=== PATIENT | male | born 1970 | race Caucasian/White ===

== ENCOUNTER 2017-05-31 12:28 | Emergency (ER) | payer OTHER ==
[~2017-05-31] VITALS: Ht 175.3 cm; Wt 100.0 kg
[2017-05-31] MEDS ORDERED: MULT1CHW39 PO (12:48)
[2017-05-31] MEDS ORDERED: OMEP40CA2 PO (12:48)
[2017-05-31] MEDS ORDERED: BUPR1TAB53 PO (12:48)
--- NOTE | 2017-05-31 14:50 | REP ---
LUMBOSACRAL SPINE SERIES: Five view of the lumbosacral spine are performed. There is no compression fracture or malalignment with normal lumbar lordosis. There is mild diffuse spurring. Slight disc space narrowing is seen at virtually all levels with sclerosis at the posterior facet joints. THE posterior elements are intact. IMPRESSION: Mild diffuse degenerative changes without fracture or dislocation. Signed by Kishan Monreal MD 05/31/2017 07:54 P
[2017-05-31 14:52] VITALS: BP 134/68
[2017-05-31] MEDS ORDERED: ROBA500T PO (14:54)
[2017-05-31] MEDS ORDERED: IBUP80TA PO (14:54)
== END 2017-05-31 15:05 | disposition home or self-care (01) ==
LOC: M ED 12:28
DX: S39.012A Strain of muscle, fascia and tendon of lower back, initial encounter (principal); M51.37 Other intervertebral disc degeneration, lumbosacral region; M54.31 Sciatica, right side; X50.9XXA Other and unspecified overexertion or strenuous movements or postures, initial encounter; Y92.9 Unspecified place or not applicable; Y93.89 Activity, other specified; Y99.0 Civilian activity done for income or pay; Z79.899 Other long term (current) drug therapy

== ENCOUNTER → 2017-11-06 | Outpatient (CLI) | payer OTHER ==
[2017-11-06 12:12] LABS: BASO % 0.4 % (0.0-1.0); EOS # 0.5 10^3/uL (0.0-0.50); EOS % 6.1 % (0.0-3.0); HEMATOCRIT 36.3 % (42.0-52.0); HEMOGLOBIN 10.7 g/dl (14.0-18.0); IMMATURE GRANULOCYTE % 0.3 % (0-3.0); LYMPH # 1.4 10^3/uL (1.5-4.5); LYMPH % 18.2 % (24.0-44.0); MEAN CORPUSCULAR HEMOGLOBIN 21.4 pg (27.0-33.0); MEAN CORPUSCULAR HGB CONC 29.5 g/dl (32.0-36.5); MEAN CORPUSCULAR VOLUME 72.7 fl (80.0-96.0); MONO # 0.7 10^3/uL (0.0-0.8); NEUTROPHILS # 5.1 10^3/uL (1.8-7.7); PLATELET COUNT, AUTOMATED 382 10^3/uL (150-450); RED BLOOD COUNT 4.99 10^6/uL (4.30-6.10); RED CELL DISTRIBUTION WIDTH 16.8 % (11.5-14.5); WHITE BLOOD COUNT 7.7 10^3/uL (4.0-10.0)
[2017-11-06 12:28] LABS: ALBUMIN 3.8 GM/DL (3.2-5.2); ALBUMIN/GLOBULIN RATIO 1.31 (1.00-1.93); ALKALINE PHOSPHATASE 59 U/L (45-117); ALT/SGPT 21 U/L (12-78); ANION GAP 8 MEQ/L (8-16); AST/SGOT 18 U/L (7-37); BILIRUBIN,TOTAL 0.5 MG/DL (0.2-1.0); BLOOD UREA NITROGEN 17 MG/DL (7-18); CALCIUM LEVEL 8.3 MG/DL (8.5-10.1); CARBON DIOXIDE LEVEL 27 MEQ/L (21-32); CHLORIDE LEVEL 106 MEQ/L (98-107); CHOLESTEROL LEVEL 190 MG/DL (<200); CHOLESTEROL RISK RATIO 3.275 (<5); CREATININE FOR GFR 1.03 MG/DL (0.70-1.30); GLOMERULAR FILTRATION RATE > 60.0 (>60); GLUCOSE, FASTING 94 MG/DL (70-100); HDL CHOLESTEROL 58 MG/DL (>40); LDL CHOLESTEROL 112.6 MG/DL (<100); NON-HDL-C 132 MG/DL; POTASSIUM SERUM 4.2 MEQ/L (3.5-5.1); SODIUM LEVEL 141 MEQ/L (136-145); TOTAL PROTEIN 6.7 GM/DL (6.4-8.2); TRIGLYCERIDES LEVEL 97 MG/DL (<150)
== END ==
LOC: M WUC 09:22
DX: Z79.899 Other long term (current) drug therapy (principal)
CPT/HCPCS: 84443

== ENCOUNTER 2017-12-20 08:48 | Day surgery (SDC) | payer OTHER ==
[2017-12-20] MEDS ORDERED: PROPOFOL 200 MG/20 ML VIAL As Ordered ×3 (10:47)
[2017-12-20] MEDS ORDERED: LIDOCAINE 2% INJ 100 MG/5 ML SYRINGE As Ordered (10:48)
== END 2017-12-20 11:31 | disposition home or self-care (01) ==
LOC: M OPP 08:48
DX: K64.2 Third degree hemorrhoids (principal); K62.1 Rectal polyp; K62.5 Hemorrhage of anus and rectum; K57.30 Diverticulosis of large intestine without perforation or abscess without bleeding; G43.909 Migraine, unspecified, not intractable, without status migrainosus; F41.9 Anxiety disorder, unspecified; F32.9 Major depressive disorder, single episode, unspecified; K21.9 Gastro-esophageal reflux disease without esophagitis; Z79.899 Other long term (current) drug therapy; Z87.891 Personal history of nicotine dependence
CPT/HCPCS: 45385

== ENCOUNTER 2018-12-16 00:02 | Inpatient (IN) | payer OTHER ==
[~2018-12-16] VITALS: Ht 175.3 cm; Wt 90.4 kg
[~2018-12-16 00:02] MED LIST: BUPR10TASR PO; BUPR1TAB53 PO; IBUP80TA PO; MULT200T7 PO; OMEP40CA2 PO; ROBA500T PO
[2018-12-16] MEDS ORDERED: AMBI10TA PO (00:06)
[2018-12-16] MEDS ORDERED: CHARCOAL ACTIVATED LIQUID 25 GM/120 ML BTL As Ordered ONE (00:33)
[2018-12-16 00:37] LABS: BASO % 0.4 % (0.0-1.0); EOS # 0.5 10^3/uL (0.0-0.50); EOS % 4.9 % (0.0-3.0); HEMATOCRIT 42.5 % (42.0-52.0); LYMPH % 10.8 % (24.0-44.0); MEAN CORPUSCULAR HEMOGLOBIN 23.5 pg (27.0-33.0); MEAN CORPUSCULAR HGB CONC 30.6 g/dl (32.0-36.5); MEAN CORPUSCULAR VOLUME 76.7 fl (80.0-96.0); MONO # 0.7 10^3/uL (0.0-0.8); MONO % 7.5 % (0.0-5.0); NEUTROPHILS # 7.2 10^3/uL (1.8-7.7); PLATELET COUNT, AUTOMATED 335 10^3/uL (150-450); RED BLOOD COUNT 5.54 10^6/uL (4.30-6.10); WHITE BLOOD COUNT 9.5 10^3/uL (4.0-10.0)
[2018-12-16] MEDS ORDERED: CHARCOAL ACTIVATED LIQUID 25 GM/120 ML BTL PO ONE (00:45)
[2018-12-16] MEDS ORDERED: NS 1,000 ML IV ONE (00:45)
[2018-12-16] MEDS ORDERED: BUPR1TAB56 PO (00:56)
[2018-12-16 01:04] LABS: ACETAMINOPHEN LEVEL < 2.0 UG/ML (10.0-30.0); ALT/SGPT 23 U/L (12-78); BILIRUBIN,DIRECT 0.1 MG/DL (0.0-0.2); BILIRUBIN,TOTAL 0.8 MG/DL (0.2-1.0); BLOOD UREA NITROGEN 14 MG/DL (7-18); CALCIUM LEVEL 8.6 MG/DL (8.5-10.1); CARBON DIOXIDE LEVEL 26 MEQ/L (21-32); CHLORIDE LEVEL 107 MEQ/L (98-107); CPK CREATINE PHOSPHOKINASE 203 U/L (39-308); CREATININE FOR GFR 1.08 MG/DL (0.70-1.30); ETHYL ALCOHOL (ETHANOL) < 0.003 % (0.000-0.010); GLOMERULAR FILTRATION RATE > 60.0 (>60); GLUCOSE, FASTING 97 MG/DL (70-100); POTASSIUM SERUM 4.7 MEQ/L (3.5-5.1); SALICYLATE LEVEL < 1.7 MG/DL (5.0-30.0); SODIUM LEVEL 141 MEQ/L (136-145); TOTAL PROTEIN 7.3 GM/DL (6.4-8.2)
[2018-12-16] MEDS ORDERED: ONDANSETRON 4MG/2ML VIAL (J2405) IV ONE (02:00)
[2018-12-16] MEDS ORDERED: GOLYTELY SOLN 4000 ML BTL NG ONE (02:00)
[2018-12-16 02:47] LABS: AMPHETAMINES LEVEL URINE NEGATIVE (NEGATIVE); BARBITURATES URINE NEGATIVE (NEGATIVE); BENZODIAZEPINES URINE NEGATIVE (NEGATIVE); CANNABINOIDS URINE NEGATIVE (NEGATIVE); COCAINE METABOLITE URINE NEGATIVE (NEGATIVE); METHADONE URINE NEGATIVE (NEGATIVE); OPIATES URINE NEGATIVE (NEGATIVE); PHENCYCLIDINE URINE NEGATIVE (NEGATIVE)
--- NOTE | 2018-12-16 03:18 | HPEPDOC ---
General Date of Admission 12/16/18 Attending Physician: DEANN GRIMES MD Chief Complaint The patient is a 48-year-old male admitted with a reason for visit of Overdose. Source: Patient, Family, RN/MD Exam Limitations: Other (confusion due to drug overdose) History of Present Illness 48 year old male with PMH of depression and insomnia was brought into the ED for confusion after presumed intake of 7 Ambiens and 24 wellbutrin tablets. He denied having trying to kill himself or having any suicidal thoughts. As per his partner he was fine at around 9 pm. She fell asleep then . She was woken up by the patient at around 11 pm when he was talking nonsense and was talking about irrelevant things not making any sense acting weirdly. The patient says he rem embers taking his wellbutrin then he cannot remember anything . His family believes that he may have taken his ambien after or before that at that may have made him confused as this is a relatively new medication ( 2 months) for him and he does not take it every day. Poison control was contacted from ED and recommended total bowel irrigation and observation for 24 hours. Patient is admitted for Toxic metabolic Encephalopathy from accidental drug overdose Home Medications Scheduled Bupropion HCl (Bupropion HCl Sr) 200 Mg Tab.sr.12h, 200 MG PO BID, (Reported) Scheduled PRN Zolpidem Tartrate (Ambien) 10 Mg Tablet, 10 MG PO QHS PRN for sleep, (Reported) Allergies Coded Allergies: No Known Allergies (Unverified , 05/31/17) Past Medical History Medical History Depression, insomnia, internal hemorrhoids, diverticulosis of sigmoid colon Social History * Smoker: Denies Alcohol: other (used to be a heavy drinker quit 3 years ago) Drugs: denies Review of Systems Constitutional: Denies: Chills, Fever, Night Sweats Eyes: Denies: Pain, Vision change ENT: Denies: Head Aches, Ear Pain, Dysphagia Skin: Denies: Rash, Lesions, Breakdown Pulmonary: Denies: Dyspnea, Cough Cardiovascular: Denies: Chest Pain, Palpitations, Orthopnea, Paroxysmal Noc. Dyspnea, Lt Headedness Gastrointestinal: Denies: Nausea, Vomiting, Abdominal Pain, Diarrhea Genitourinary: Denies: Dysuria, Frequency, Incontinence, Retention Neurological: Reports: Change in speech, Confusion Psych: Reports: Depression Physical Examination General Exam: Positive: Alert, Cooperative, No Acute Distress Eye Exam: Positive: PERRLA, Conjunctiva & lids normal, EOMI; Negative: Sclera icteric ENT Exam: Positive: Atraumatic, Mucous membr. moist/pink, Pharynx Normal Neck Exam: Positive: Supple; Negative: JVD, thyromegaly Chest Exam: Positive: Clear to auscultation, Normal air movement Heart Exam: Positive: Rate Normal, Regular Rhythm, Normal S1, Normal S2; Negative: Murmurs, Rubs Telemetry: Positive: No significant arrhythmia Abdomen Exam: Positive: Normal bowel sounds, Soft; Negative: Tenderness, Hepatospenomegaly Extremity Exam: Positive: Normal pulses; Negative: Clubbing, Cyanosis, Edema Skin Exam: Positive: Nl turgor and temperature; Negative: Breakdown, Lesion Neuro Exam: Positive: Normal Speech, Strength at 5/5 X4 ext, Normal Tone Psych Exam: Positive: Mood NL, Memory Intact, Oriented x 3 Vital Signs Vital Signs Date Time Temp Pulse Resp B/P (MAP) Pulse Ox O2 Delivery O2 Flow Rate FiO2 12/16/18 01:46 100 20 112/71 (85) 99 Room Air 12/16/18 00:02 96.7 Laboratory Data Labs 24H Laboratory Tests 2 12/16/18 00:24: Immature Granulocyte % (Auto) 0.4, White Blood Count 9.5, Red Blood Count 5.54, Hemoglobin 13.0L, Hematocrit 42.5, Mean Corpuscular Volume 76.7L, Mean Corpuscular Hemoglobin 23.5L, Mean Corpuscular Hemoglobin Concent 30.6L, Red Cell Distribution Width 18.0H, Platelet Count 335, Neutrophils (%) (Auto) 76.0H, Lymphocytes (%) (Auto) 10.8L, Monocytes (%) (Auto) 7.5H, Eosinophils (%) (Auto) 4.9H, Basophils (%) (Auto) 0.4, Neutrophils # (Auto) 7.2, Lymphocytes # (Auto) 1.0L, Monocytes # (Auto) 0.7, Eosinophils # (Auto) 0.5, Basophils # (Auto) 0.0, Nucleated Red Blood Cells % (auto) 0.0, Anion Gap 8, Glomerular Filtration Rate > 60.0, Calcium Level 8.6, Aspartate Amino Transf (AST/SGOT) 34, Alanine Aminotransferase (ALT/SGPT) 23, Alkaline Phosphatase 51, Total Bilirubin 0.8, Direct Bilirubin 0.1, Total Creatine Kinase 203, Total Protein 7.3, Albumin 4.0, Albumin/Globulin Ratio 1.21, Thyroid Stimulating Hormone (TSH) 1.580, Salicylates Level < 1.7L, Acetaminophen Level < 2.0L, Ethyl Alcohol Level < 0.003 CBC/BMP Laboratory Tests 12/16/18 00:24 Red Blood Count 5.54, Mean Corpuscular Volume 76.7 L, Mean Corpuscular Hemoglobin 23.5 L, Mean Corpuscular Hemoglobin Concent 30.6 L, Red Cell Distribution Width 18.0 H, Neutrophils (%) (Auto) 76.0 H, Lymphocytes (%) (Auto) 10.8 L, Monocytes (%) (Auto) 7.5 H, Eosinophils (%) (Auto) 4.9 H, Basophils (%) (Auto) 0.4, Neutrophils # (Auto) 7.2, Lymphocytes # (Auto) 1.0 L, Monocytes # (Auto) 0.7, Eosinophils # (Auto) 0.5, Basophils # (Auto) 0.0 Assessment/Plan 48 year old male with PMH of depression and insomnia was brought into the ED for confusion after presumed intake of 7 Ambiens and 24 wellbutrin tablets. He den ied having trying to kill himself or having any suicidal thoughts. As per his partner he was fine at around 9 pm. She fell asleep then . She was woken up by the patient at around 11 pm when he was talking nonsense and was talking about irrelevant things not making any sense acting weirdly. Family members then checked his medication bottles which were refilled yesterday and had several missing The patient says he remembers taking his wellbutrin then he cannot remember anything . His family believes that he may have taken his ambien after or before that at that may have made him confused as this is a relatively new medication ( 2 months) for him and he does not take it every day. Poison contr ol was contacted from ED and recommended total bowel irrigation and observation for 24 hours. Patient is admitted for Toxic metabolic Encephalopathy from accidental drug overdose Toxic metabolic encephalopathy from medication overdose. Patient seems candace be improving he is alert and oriented x 3 will continue to monitor Drug overdose patient denied any suicidal thoughts. Family denied his having any intentional drug overdose history or any psychiatric history. this was probably accidental overdose. Patient may have taken his prescribed medication of ambien and Wellbutrin got confused and continued to take them Will follow Poison control's recommendation of total bowel irrigation with 4 l iter of golyte monitor for qtc prolongation and widening of qrs complex. DVT prophylaxis ordered. Plan / VTE VTE Prophylaxis Ordered?: Yes DEANN GRIMES MD Dec 16, 2018 02:05
[2018-12-16 04:15] VITALS: BP 144/100
[2018-12-16] MEDS: D5W/0.9% SODIUM CHLORIDE 1,000 ML IV SCH ×2 (04:34→15:45)
--- NOTE | 2018-12-16 05:39 | ECGEPIP ---
Stationary ECG Study [facility] - ED Test Date: 2018-12-16 Pat Name: PATRICIO TIRADO Department: Room: - Gender: M Emission Specialist: [facility] : 1970 Requested By: YUDELKA Rao Order Number: [id number] Reading MD: Kenneth Rankin Measurements Intervals [place] Rate: 80 P: 46 FL: 166 QRS: 31 QRSD: 96 T: 24 QT: 349 QTc: 404 Interpretive Statements SINUS RHYTHM NSTTW ABNORMALITIES NO PRIORS FOR COMPARISON Electronically Signed On 12-16-2018 5:38:48 EDT by Kenneth Rankin
[2018-12-16 08:00] VITALS: BP 112/64
[2018-12-16] MEDS ORDERED: ENOXAPARIN 40 MG/0.4 ML SYRINGE (J1650) SC SCH (09:00)
[2018-12-16 12:00] VITALS: BP 129/67
[2018-12-16 16:00] VITALS: BP 145/68
[2018-12-16] MEDS ORDERED: ACETAMINOPHEN TAB 650MG DOSE (2X325MG) PO PRN (17:30)
--- NOTE | 2018-12-16 18:07 | IPN ---
DATE: 12/16/2018 SUBJECTIVE: The patient is seen and examined in the room with his girlfriend. During the encounter, the patient is oriented times three. The patient could not recall the events completely. The patient can not recall how many pills he overdosed. I have talked to the patient's girlfriend who lives with the patient and she could not find any additional pills on the floor. She did the pill count and approximately seven more Ambien and 24 more Wellbutrin were missing from the bottle. The patient stated he is not sure whether his anxiety and depression are under control. The patient had a prescription for Ambien since two months ago. The patient only uses it intermittently. He has used it less than five times. He states he always has some adverse effect from the Ambien such as the worsening of the migraine headache. The patient stated he does not want to take the Wellbutrin or Ambien anymore but he is not sure what he will take or what he will do to control his anxiety and depression more. Poison control is contacted and recommended monitoring the patient on telemetry for at least 24 hours. OBJECTIVE: VITAL SIGNS: Temperature is 98.4, pulse is 84, respiratory rate 18, blood pressure 112/64, pulse oximetry is 98% in room air. GENERAL: The patient is alert and awake, comfortable. HEENT: Normocephalic, atraumatic. Extraocular motor grossly intact. CARDIOVASCULAR: Positive S1, S2, regular rate. LUNGS: Clear to auscultation bilaterally. ABDOMEN: Soft, nontender. Bowel sounds present. EXTREMITIES: No edema. LABORATORY DATA: WBC 9.5, hemoglobin 13, hematocrit 42.5, platelet count is 335. Sodium is 141, potassium is 4.7, chloride is 107, carbon dioxide 26, BUN 14, creatinine 1.08, GFR greater than 60, fasting glucose 97, calcium 8.6, total bilirubin 0.8, direct bilirubin 0.1, AST 34, ALT is 23, alkaline phosphatase is 51, total CK 203, total protein 10.3, albumin 4, TSH 1.58. ASSESSMENT AND PLAN: 1. Medication overdose. The patient is monitored in the intensive care unit (ICU) with cardiac telemetry. Poison control has been following with the case and recommended at least 24-hour cardiac monitoring since the medication overdose. The patient took additional medication around midnight yesterday. The patient had a bowel irrigation with Golytely. Continue with repeat EKG to monitor any potential QTc prolongations. The patient is on seizure precautions. We will continue to follow with poison control. Once the patient is medically stable and cleared by poison control, we will consider consulting psychiatrist. 2. Anxiety/depression. At the baseline, the patient is taking Wellbutrin. However, the patient is not sure whether he has flare of the anxiety or depression and the patient does not want to take the Wellbutrin anymore. We will consult psychiatry when the patient is medically stable. 3. Insomnia. The patient had a prescription of Ambien since two months ago and the patient has not used Ambien routinely. According to the patient, he has used it less than five times in the past two months. However, he feels that he always had adverse effects from the Ambien. 4. Internal hemorrhoids and diverticulosis of the sigmoid colon. The patient had a bowel movement today. There was a trickle of blood noted on the toilet paper. The patient states that is normal from his internal hemorrhoids and diverticulosis. No significant bleeding noted. We will continue to monitor the patient's hemoglobin and hematocrit. 5. Deep vein thrombosis (DVT) prophylaxis. The patient will be on thromboembolic-deterrent stockings (TEDS).
[2018-12-16 20:00] VITALS: BP 119/73
--- NOTE | 2018-12-16 22:36 | ECGEPIP ---
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 No significant change compared with 12/16/2018 at 00:29 hours. Electronically Signed On 12-16-2018 22:35:38 EDT by Vinicius Tierney
--- NOTE | 2018-12-16 22:39 | ECGEPIP ---
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 No significant change compared with 12/16/2018 at 7:57 AM. Electronically Signed On 12-16-2018 22:38:58 EDT by Vinicius Tierney
[2018-12-16 23:59] VITALS: BP 119/60
[2018-12-17 04:00] VITALS: BP 127/67
[2018-12-17] MEDS: D5W/0.9% SODIUM CHLORIDE 1,000 ML IV SCH ×2 (04:31→17:46)
[2018-12-17 05:39] LABS: BASO % 0.4 % (0.0-1.0); EOS # 0.4 10^3/uL (0.0-0.50); EOS % 5.7 % (0.0-3.0); HEMATOCRIT 37.6 % (42.0-52.0); HEMOGLOBIN 11.2 g/dl (13.5-17.5); LYMPH # 1.7 10^3/uL (1.5-4.5); LYMPH % 25.4 % (24.0-44.0); MEAN CORPUSCULAR HEMOGLOBIN 23.2 pg (27.0-33.0); MEAN CORPUSCULAR HGB CONC 29.8 g/dl (32.0-36.5); MEAN CORPUSCULAR VOLUME 77.8 fl (80.0-96.0); MONO # 0.6 10^3/uL (0.0-0.8); MONO % 9.2 % (0.0-5.0); NEUTROPHILS % 59.2 % (36.0-66.0); PLATELET COUNT, AUTOMATED 283 10^3/uL (150-450); RED BLOOD COUNT 4.83 10^6/uL (4.30-6.10); WHITE BLOOD COUNT 6.7 10^3/uL (4.0-10.0)
[2018-12-17 05:53] LABS: BLOOD UREA NITROGEN 5 MG/DL (7-18); CALCIUM LEVEL 7.9 MG/DL (8.5-10.1); CARBON DIOXIDE LEVEL 29 MEQ/L (21-32); CHLORIDE LEVEL 111 MEQ/L (98-107); CREATININE FOR GFR 1.02 MG/DL (0.70-1.30); GLOMERULAR FILTRATION RATE > 60.0 (>60); GLUCOSE, FASTING 97 MG/DL (70-100); MAGNESIUM LEVEL 1.8 MG/DL (1.8-2.4); POTASSIUM SERUM 3.8 MEQ/L (3.5-5.1); SODIUM LEVEL 144 MEQ/L (136-145)
[2018-12-17 08:00] VITALS: BP 131/72
[2018-12-17 12:00] VITALS: BP 134/82
--- NOTE | 2018-12-17 15:07 | IPNPDOC ---
Date Seen The patient was seen on 12/17/18. Progress Note The patient is seen and examined this morning. Sitting up comfortably and does not appear in acute distress States that he okay last night. He was restless and but he has a problem with insomnia. Tolerating his meals He denies shortness of breath, chest pain, nausea, vomiting, lightheadedness, headaches, or change in vision. No overnight events reported. Poison control was called and case numb er#[id number] states the patient is medically stable. Psychiatry consult has been placed. OBJECTIVE: VITALS: See below GENERAL: 48-year-old male who is sitting up in bed does not appear in acute distress appropriately answering questions AAO 3. HEENT: Normocephalic, atraumatic. Poor dentition CARDIOVASCULAR: Normal S1-S2 sounds regular rate and rhythm no audible murmurs rubs or gallops. LUNGS: Clear to auscultation bilaterally. No wheezing rhonchi or rales. ABDOMEN: Soft, nontender. Bowel sounds present. EXTREMITIES: No lower extremity edema. ASSESSMENT AND PLAN: 1. Medication overdose. -Per poison control's recommendations completed 24-hour cardiac monitoring, EKG is to assess QT prolongation and GoLYTELY - -called was in control today and patient is medically stable - Unsure if this is a suicide attempt psychiatry consult has been placed. Social service consult placed for psychiatry's recommendation to obtain collateral information. 2. Anxiety/depression. -Wellbutrin patient does not want to continue -will refer to psychiatry for further recommendations 3. Insomnia. -We will not continue Ambien. -will refer to psychiatry for further recommendations 4. Hx of Internal hemorrhoids and diverticulosis of the sigmoid colon. 5. Deep vein thrombosis (DVT) prophylaxis -Isauro's and sequential VS, I&O, 24H, Fishbone Vital Signs/I&O Vital Signs Date Time Temp Pulse Resp B/P (MAP) Pulse Ox O2 Delivery O2 Flow Rate FiO2 12/17/18 12:00 98.4 64 18 134/82 (99) 97 12/16/18 03:22 Room Air I&O- Last 24 Hours up to 6 AM 12/17/18 06:00 Intake Total 2937 ml Output Total 3375 ml Balance -438 ml Laboratory Data 24H LABS Laboratory Tests 2 12/17/18 05:11: Immature Granulocyte % (Auto) 0.1, White Blood Count 6.7, Red Blood Count 4.83, Hemoglobin 11.2L, Hematocrit 37.6L, Mean Corpuscular Volume 77.8L, Mean Corpuscular Hemoglobin 23.2L, Mean Corpuscular Hemoglobin Concent 29.8L, Red Cell Distribution Width 17.6H, Platelet Count 283, Neutrophils (%) (Auto) 59.2, Lymphocytes (%) (Auto) 25.4, Monocytes (%) (Auto) 9.2H, Eosinophils (%) (Auto) 5.7H, Basophils (%) (Auto) 0.4, Neutrophils # (Auto) 4.0, Lymphocytes # (Auto) 1.7, Monocytes # (Auto) 0.6, Eosinophils # (Auto) 0.4, Basophils # (Auto) 0.0, Nucleated Red Blood Cells % (auto) 0.3H, Anion Gap 4L, Glomerular Filtration Rate > 60.0, Blood Urea Nitrogen 5#L, Creatinine 1.02, Sodium Level 144, Potassium Level 3.8, Chloride Level 111H, Carbon Dioxide Level 29, Calcium Level 7.9L, Magnesium Level 1.8 CBC/BMP Laboratory Tests 12/17/18 05:11 Red Blood Count 4.83, Mean Corpuscular Volume 77.8 L, Mean Corpuscular Hemoglobin 23.2 L, Mean Corpuscular Hemoglobin Concent 29.8 L, Red Cell Distribution Width 17.6 H, Neutrophils (%) (Auto) 59.2, Lymphocytes (%) (Auto) 25.4, Monocytes (%) (Auto) 9.2 H, Eosinophils (%) (Auto) 5.7 H, Basophils (%) (Auto) 0.4, Neutrophils # (Auto) 4.0, Lymphocytes # (Auto) 1.7, Monocytes # (Auto) 0.6, Eosinophils # (Auto) 0.4, Basophils # (Auto) 0.0, Calcium Level 7.9 L GME ATTESTATION GME ATTESTATION My faculty preceptor for this patient encounter was physically present during the encounter and was fully available. All aspects of the patient interview, examination, medical decision making process, and medical care plan development were reviewed and approved by the faculty preceptor. The faculty preceptor is aware and concurs with the plan as stated in the body of this note and will attest to such by his/her cosignature. GNEI ALCARAZ DO Dec 17, 2018 15:07
[2018-12-17 16:00] VITALS: BP 127/71
[2018-12-17 18:45] VITALS: BP 145/81
[2018-12-17 22:00] VITALS: BP 128/71
[2018-12-18 06:00] VITALS: BP 115/68
[2018-12-18 06:47] LABS: BASO % 0.4 % (0.0-1.0); EOS # 0.3 10^3/uL (0.0-0.50); EOS % 3.6 % (0.0-3.0); HEMATOCRIT 38.4 % (42.0-52.0); HEMOGLOBIN 11.4 g/dl (13.5-17.5); LYMPH % 24.2 % (24.0-44.0); MEAN CORPUSCULAR HGB CONC 29.7 g/dl (32.0-36.5); MEAN CORPUSCULAR VOLUME 77.4 fl (80.0-96.0); MONO # 0.7 10^3/uL (0.0-0.8); MONO % 8.7 % (0.0-5.0); NEUTROPHILS # 5.2 10^3/uL (1.8-7.7); NEUTROPHILS % 62.7 % (36.0-66.0); PLATELET COUNT, AUTOMATED 306 10^3/uL (150-450); RED BLOOD COUNT 4.96 10^6/uL (4.30-6.10); WHITE BLOOD COUNT 8.4 10^3/uL (4.0-10.0)
[2018-12-18 07:39] LABS: BLOOD UREA NITROGEN 9 MG/DL (7-18); CALCIUM LEVEL 8.2 MG/DL (8.5-10.1); CARBON DIOXIDE LEVEL 30 MEQ/L (21-32); CHLORIDE LEVEL 109 MEQ/L (98-107); CREATININE FOR GFR 1.07 MG/DL (0.70-1.30); GLOMERULAR FILTRATION RATE > 60.0 (>60); GLUCOSE, FASTING 95 MG/DL (70-100); POTASSIUM SERUM 3.6 MEQ/L (3.5-5.1); SODIUM LEVEL 143 MEQ/L (136-145)
[2018-12-18] MEDS: D5W/0.9% SODIUM CHLORIDE 1,000 ML IV SCH (08:20)
--- NOTE | 2018-12-18 08:58 | MHCR ---
DATE OF CONSULTATION: 12/17/2018 CHIEF COMPLAINT: He took an overdose. SUBJECTIVE: He is 48 years old. He has a fiance, whom he lives with. Her mother lives with them as well, as does one of his sons, who is about 20. I have been asked to see this patient by the hospitalist and make an assessment. The chart is reviewed. The patient is interviewed. I also interviewed his girlfriend, separately, with the patient's permission, and then saw them together for my recommendations. He lives with his girlfriend. He says that he remembers not much of the journey here, but he was getting ready for sleep, took his medicines, he is on Wellbutrin at 200 mg twice a day, Ambien 10 mg at night, and says after he was preparing to go to sleep a couple of nights ago does not remember much of what happened, vaguely remembers coming to the hospital, and then questioning him downstairs and remembers a tube down his throat. 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 The nature of his job changed a few months ago as a different shift from 5:00 a.m. to 1:00 p.m. Says likes it, but that it is quite fast paced and has to monitor inventory, says enjoys it and that he has quite an understanding boss. Says moods have generally been good. Is looking forward to his parents visiting over the [facility] weekend coming up in a few days. Says had difficulties with sleep for years and has used medicines, various ones on occasion. Says had used trazodone in the past, but that he had nightmares with it. He did not quite like the way he felt, was unclear on this. Denied that he felt drowsy on it. Says was put on Ambien by Dr. Rashid, his primary care, sometime late last year at 5 mg. Says that was not effective. Went up to 10 mg a couple of months later. He says that he has been using it periodically to help with sleep, and that at times it helps. It should be noted, however, that checking the I-Stop registry shows that the patient last collected the Ambien about 4 days ago. He says that he remembers that and then when his family counted the pills left it appears as if he had taken about seven Ambiens or so. More than 20 Wellbutrin pills were apparently missing as well. He says that he has no idea what happened, but that he acknowledges that he may have taken an overdose, denies that it was intentional. He indicates that he does not feel depressed, enjoys being with his family, acknowledges at times he gets "grumpy," but does not think that he is irritable most of the time. Does say that he feels anxious and that he has compulsions, particularly those where he cleans and arranges things. He feels they diminished a few years ago but his girlfriend thinks otherwise. The I-Stop registry also shows he has been prescribed a combination of dextroamphetamine and amphetamine (Adderall) in October of this year and then in November. He says that it was for attention and concentration and that he did not find it to be very effective and that he stopped using it several weeks ago. It should be noted that urine toxicology was negative for amphetamines. Denies that he has been suicidal or that he had any intention of hurting himself. Denies any intentions now either. He says that matters have been going relatively well, including with his girlfriend. He says that he gets along with is son, his girlfriend's mother as well. He says that there are other children that he has elsewhere from his first marriage and that he maintains touch with them, generally gets along with them. There is no psychomotor retardation. Denies any suicidal thoughts or intents. Says has had a long history of difficulties with alcohol, has received three DWIs, including 1996, then 2008, and then 2012. 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 He went to get it a while back and they did not think that he was ready for that. He thinks that he had to wait another year or so. He says that he has attended AA meetings on occasions. Denies any drug use or any alcohol use. He says that he has been sober for a few years. Has periods when he gets irritable but not coupled with other symptoms indicative of hypomania nor vu. No history consistent with psychosis as such. 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 PAST PSYCHIATRIC HISTORY: None formally, but says saw a psychiatrist in rehab, and that he had diagnosed him possibly with bipolar disorder but also depression and anxiety, this is all per the patient. Says has been on Wellbutrin, started on that somewhere along the lines within the last couple of years, currently takes 200 mg twice a day. FAMILY PSYCHIATRIC HISTORY: He said a maternal uncle killed himself. He says that this was long before the patient was born. He says that he thinks one of his sons has difficulties with anxiety and compulsions possibly. SUBSTANCE ABUSE HISTORY: Had difficulties with alcohol, has been to rehab, has had three DWIs. Says has been sober for a few years now. Had attempted getting his carrier driver's license back, but says has to wait for the application. He has driven to work by his girlfriend and brought back by her or a friend. SOCIAL HISTORY: He was raised by his parents. 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 Denies a history of abuse. He obtained a GED. He has been working at this job for about 3 years or so. Says his first marriage lasted for 24 years or so and that his drinking contributed to the breakup. He and his current girlfriend have been together for the last 3 years or so, he says that they get along well. Says he gets along well with his children and one of his sons lives with him. MENTAL STATUS EXAMINATION: He is in hospital clothes. He is neat. He has a long half parra. He is cooperative. There is no agitation. No psychomotor retardation. He is coherent. Does not appear to be internally preoccupied. At times he feels mildly anxious. No abnormal movements noted. Denies any suicide thoughts or intents. No homicidal ideas or intents. No evidence of any psychosis. Cognition is grossly intact, though he could recall two out of three objects only after prompting. Intellect is average. Judgment is good. Insight is fair to good. ASSESSMENT: 1. Delirium secondary to drug overdose. 2. Obsessive compulsive disorder (OCD). 3. Insomnia. Has been delirious after taking too many Ambien and Wellbutrin, initially the Ambien. Currently, there is no evidence of any delirium. Maintains and shifts attention adequately. He denies any suicidal intents and collateral information from his girlfriend, whom I spoke with, does not point to a suicide attempt either. She says that he has been doing okay but acknowledges that he cleans quite a bit. She corroborated the history, except for the anxiety related compulsions. She thinks that these are a bit more prominent than he does. The history points more to an accidental overdose. The Ambien may have lead to an idiosyncratic reaction and then further compounded by the confusion (girlfriend's narrative of events points to his being confused after he had taken some Ambien and then there were concerns that he may have taken Wellbutrin. She says that he appeared not his usual self, but that he was a bit more alert in the emergency room, less confused). She has had no indications that he has wanted to kill himself. Given this history, has obsessions and compulsions most related to cleaning. Also has a history of alcohol misuse and I would not recommend hypnotics like Ambien. He was also on Adderall for a brief while, says took it periodically for attention and concentration. Toxicology was negative for amphetamines. He says that he has dumped the Adderall. He denies using it recently either. RECOMMENDATIONS: I would suggest considering trazodone at a low dose, for example 50 mg at night as needed for insomnia. Consider selective serotonin reuptake inhibitors (SSRIs), such as Prozac as a substitute for Wellbutrin to assist with obsessions and compulsions. I would strongly suggest that he not be on any controlled substances. The above can be initiated by primary care. I also suggest referral to a counselor and therapist and that he can be referred to see a psychiatrist if the above measures are not successful. Consider referral for outpatient substance abuse so he can work as well on getting his license back. My recommendations and assessment are discussed with the patient and his girlfriend, with his permission. He does not require inpatient psychiatric hospitalization from my standpoint at this point. Thank you for the consultation. If you have any questions, please call. The assessment took 90 minutes.
--- NOTE | 2018-12-18 13:00 | DS.PDOC ---
Discharge Summary General Date of Admission Dec 16, 2018 at 02:59 Date of Discharge 12/18/18 Primary Care Physician: LAILA PARISI MD [facility] Discharge Summary PROCEDURES PERFORMED DURING STAY: None. ADMITTING DIAGNOSES: 1. Toxic metabolic encephalopathy 2. Drug overdose DISCHARGE DIAGNOSES: 1. Delirium secondary to drug overdose Wellbutrin and Ambien 2. Anxiety/depression. 3. Insomnia. 4. Hx of Internal hemorrhoids and diverticulosis of the sigmoid colon. 5. Obsessive compulsive disorder (OCD). COMPLICATIONS/CHIEF COMPLAINT: Accidental Medication Overdose,Toxic Metabolic Enc. HISTORY OF PRESENT ILLNESS: 48 year old male with PMH of depression and insomnia was brought into the ED for confusion after presumed intake of 7 Ambiens and 24 wellbutrin tablets. He denied having trying to kill himself or having any suicidal thoughts. As per his partner he was fine at around 9 pm. She fell asleep then . She was woken up by the patient at around 11 pm when he was talking nonsense and was talking about irrelevant things not making any sense acting weirdly. The patient says he remembers taking his wellbutrin then he cannot remember anything . His family believes that he may have taken his ambien after or before that at that may have made him confused as this is a relatively new medication ( 2 months) for him and he does not take it every day. Poison control was contacted from ED and recommended total bowel irrigation and observation for 24 hours. Patient is admitted for Toxic metabolic Encephalopathy from accidental drug overdose HOSPITAL COURSE: Poison control was called and recommended patient be monitored for 24 hours, have GoLYTELY and have serial EKGs to assess for QT prolongation. Admitting was negative. On 12/17/2018 evening he was cleared from a medical standpoint from poison control. And then psychiatry consult was placed. He was evaluated by Dr. Lord, prior to discharge to evaluate if this is a suicidal attempt. He was cleared for discharge and he recommended possible trazodone low- dose 50 mg at night as needed for insomnia as well as an SSRI such as Prozac to substitute for Wellbutrin to assess with his obsession and compulsion. He strongly suggest that the patient not to be on any controlled substances. He is to follow-up with outpatient substance abuse counselor and therapist. If his symptoms do not resolve with the above recommendation can consider referral to psychiatrist. All of these recommendations were conveyed to the patient and he is safe to discharge. He was agreeable to the plan stated to him. DISCHARGE MEDICATIONS: Please see below. ALLERGIES: Please see below. PHYSICAL EXAMINATION ON DISCHARGE: VITAL SIGNS: Please see below. GENERAL: 48-year-old male who is sitting up in bed does not appear in acute distress appropriately answering questions AAO 3. HEENT: Normocephalic, atraumatic. Poor dentition CARDIOVASCULAR: Normal S1-S2 sounds regular rate and rhythm no audible murmurs rubs or gallops. LUNGS: Clear to auscultation bilaterally. No wheezing rhonchi or rales. ABDOMEN: Soft, nontender. Bowel sounds present. EXTREMITIES: No lower extremity edema. LABORATORY DATA: Please see below. IMAGING: None PROGNOSIS: Fair ACTIVITY: As tolerated. DIET: Regular DISPOSITION: 01 Home, Self-Care. DISCHARGE INSTRUCTIONS: 1. Follow-up with PCP in 7-10 days 2. Stop Ambien and Wellbutrin. Hold until you follow-up with your primary care provider. 3. Please follow up with outpatient therapist and substance abuse counselor 4. If symptoms return or worsen please call your PCP or return to the ER. DISCHARGE CONDITION: Stable. TIME SPENT ON DISCHARGE: Greater than 35 minutes. Vital Signs/I&Os Vital Signs Date Time Temp Pulse Resp B/P (MAP) Pulse Ox O2 Delivery O2 Flow Rate FiO2 12/18/18 06:00 97.2 81 20 115/68 (84) 100 12/16/18 03:22 Room Air I&O- Last 24 Hours up to 6 AM 12/18/18 06:00 Intake Total 3980 ml Output Total 2600 ml Balance 1380 ml Laboratory Data Labs 24H Laboratory Tests 2 12/18/18 05:32: Immature Granulocyte % (Auto) 0.4, White Blood Count 8.4, Red Blood Count 4.96, Hemoglobin 11.4L, Hematocrit 38.4L, Mean Corpuscular Volume 77.4L, Mean Corpuscular Hemoglobin 23.0L, Mean Corpuscular Hemoglobin Concent 29.7L, Red Cell Distribution Width 17.3H, Platelet Count 306, Neutrophils (%) (Auto) 62.7, Lymphocytes (%) (Auto) 24.2, Monocytes (%) (Auto) 8.7H, Eosinophils (%) (Auto) 3.6H, Basophils (%) (Auto) 0.4, Neutrophils # (Auto) 5.2, Lymphocytes # (Auto) 2.0, Monocytes # (Auto) 0.7, Eosinophils # (Auto) 0.3, Basophils # (Auto) 0.0, Nucleated Red Blood Cells % (auto) 0.0, Anion Gap 4L, Glomerular Filtration Rate > 60.0, Blood Urea Nitrogen 9#, Creatinine 1.07, Sodium Level 143, Potassium Level 3.6, Chloride Level 109H, Carbon Dioxide Level 30, Calcium Level 8.2L CBC/BMP Laboratory Tests 12/18/18 05:32 Red Blood Count 4.96, Mean Corpuscular Volume 77.4 L, Mean Corpuscular Hemoglobin 23.0 L, Mean Corpuscular Hemoglobin Concent 29.7 L, Red Cell Distribution Width 17.3 H, Neutrophils (%) (Auto) 62.7, Lymphocytes (%) (Auto) 24.2, Monocytes (%) (Auto) 8.7 H, Eosinophils (%) (Auto) 3.6 H, Basophils (%) (Auto) 0.4, Neutrophils # (Auto) 5.2, Lymphocytes # (Auto) 2.0, Monocytes # (Auto) 0.7, Eosinophils # (Auto) 0.3, Basophils # (Auto) 0.0, Calcium Level 8.2 L Discharge Medications No Active Prescriptions or Reported Meds Allergies Coded Allergies: No Known Allergies (Unverified , 05/31/17) GME ATTESTATION GME ATTESTATION My faculty preceptor for this patient encounter was physically present during th e encounter and was fully available. All aspects of the patient interview, examination, medical decision making process, and medical care plan development were reviewed and approved by the faculty preceptor. The faculty preceptor is aware and concurs with the plan as stated in the body of this note and will attest to such by his/her cosignature. GENI ALCARAZ DO Dec 18, 2018 12:59
--- NOTE | 2018-12-18 21:13 | ECGEPIP ---
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 Electronically Signed On 12-18-2018 21:13:37 EDT by Vinicius Tierney
== END 2018-12-18 11:00 | disposition home or self-care (01) | DRG 917 ==
LOC: M ED 00:02 → M ED INP 02:59 → M PCU 04:00 → M MSPAV 12-17 18:42
PROVIDERS: ADMIT Internal Medicine Nephrology; ATTEND Internal Medicine
DX: T42.6X1A Poisoning by other antiepileptic and sedative-hypnotic drugs, accidental (unintentional), initial encounter (principal); G92 Toxic encephalopathy; T43.291A Poisoning by other antidepressants, accidental (unintentional), initial encounter; F41.9 Anxiety disorder, unspecified; F32.9 Major depressive disorder, single episode, unspecified; F42.9 Obsessive-compulsive disorder, unspecified; K57.30 Diverticulosis of large intestine without perforation or abscess without bleeding; K64.8 Other hemorrhoids; G47.00 Insomnia, unspecified

== ENCOUNTER 2020-09-17 10:58 | Day surgery (SDC) | payer OTHER ==
[~2020-09-17] VITALS: Ht 175.3 cm; Wt 86.2 kg
[~2020-09-17 10:58] MED LIST changes: +AMBI10TA PO; +BUPR1TAB56 PO; -OMEP40CA2 PO; +OMEP40CA97 PO
--- OUTSIDE RECORDS SUMMARY | 2020-09-17 11:04 | CCD ---
Author Author [facility] Organization [facility] Address Unknown Phone Unavailable Care Team Providers Care Skiver Heel Tap Name Role Phone Barraclough, Alethea PA Unavailable Unavailable Barraclough, Alethea PA Unavailable Unavailable Barraclough, Alethea PA Unavailable Unavailable Barraclough, Alethea PA Unavailable Unavailable Barraclough, Alethea PA Unavailable Unavailable Barraclough, Alethea PA Unavailable Unavailable Jalen Robertson MD Unavailable Unavailable Jalen Robertson MD Unavailable Unavailable Jalen Robertson MD Unavailable Unavailable Jalen Robertson MD Unavailable Unavailable Jalen Robertson MD Unavailable Unavailable Jalen Robertson MD Unavailable Unavailable Jalen Robertson MD Unavailable Unavailable Jalen Robertson MD Unavailable Unavailable Jalen Robertson MD Unavailable Unavailable Jalen Robertson MD Unavailable Unavailable Jalen Robertson MD Unavailable Unavailable Jalen Robertson MD Unavailable Unavailable Jalen Robertson MD Unavailable Unavailable Jalen Robertson MD Unavailable Unavailable Jalen Robertson MD Unavailable Unavailable Jalen Robertson MD Unavailable Unavailable Jalen Robertson MD Unavailable Unavailable Jalen Robertson MD Unavailable Unavailable Jalen Robertson MD Unavailable Unavailable Jalen Robertson MD Unavailable Unavailable Jalen Robertson MD Unavailable Unavailable Jalen Robertson MD Unavailable Unavailable Jalen Robertson MD Unavailable Unavailable Jalen Robertson MD Unavailable Unavailable Jalen Robertson MD Unavailable Unavailable Jalen Robertson MD Unavailable Unavailable Jalen Robertson MD Unavailable Unavailable Jalen Robertson MD Unavailable Unavailable Jalen Robertson MD Unavailable Unavailable Jalen Robertson MD Unavailable Unavailable Jalen Robertson MD Unavailable Unavailable Jalen Robertson MD Unavailable Unavailable RobertsonJalen MD Unavailable Unavailable Robertson, Jalen Soliz MD Unavailable Unavailable Robertson, Jalen Soliz MD Unavailable Unavailable Robertson, Jalen Soliz MD Unavailable Unavailable Robertson, Jalen Soliz MD Unavailable Unavailable Robertson, Jalen Soliz MD Unavailable Unavailable Robertson, Jalen Soliz MD Unavailable Unavailable Robertson, Jalen Soliz MD Unavailable Unavailable Robertson, Jalen Soliz MD Unavailable Unavailable Robertson, Jalen Soliz MD Unavailable Unavailable Robertson, Jalen Soliz MD Unavailable Unavailable Robertson, Jalen Soliz MD Unavailable Unavailable Robertson, Jalen Soliz MD Unavailable Unavailable Robertson, Jalen Soliz MD Unavailable Unavailable Robertson, Jalen Soliz MD Unavailable Unavailable Robertson, Jalen Soliz MD Unavailable Unavailable Robertson, Jalen Soliz MD Unavailable Unavailable Robertson, Jalen Soliz MD Unavailable Unavailable Robertson, Jalen Soliz MD Unavailable Unavailable Robertson, Jalen Soliz MD Unavailable Unavailable Robertson, Jalen Soliz MD Unavailable Unavailable Robertson, Jalen Soliz MD Unavailable Unavailable Robertson, Jalen Soliz MD Unavailable Unavailable Robertson, Jalen Soliz MD Unavailable Unavailable Robertson, Jalen Soliz MD Unavailable Unavailable Robertson, Jalen Soliz MD Unavailable Unavailable Robertson, Jalen Soliz MD Unavailable Unavailable Robertson, Jalen Soliz MD Unavailable Unavailable Robertson, Jalen Soliz MD Unavailable Unavailable Robertson, Jalen Soliz MD Unavailable Unavailable Robertson, Jalen Soliz MD Unavailable Unavailable Robertson, Jalen Soliz MD Unavailable Unavailable Robertson, Jalen Soliz MD Unavailable Unavailable Robertson, Jalen Soliz MD Unavailable Unavailable Robertson, Jalen Soliz MD Unavailable Unavailable Robertson, Jalen Soliz MD Unavailable Unavailable Robertson, Jalen Soliz MD Unavailable Unavailable Robertson, Jalen Soliz MD Unavailable Unavailable Robertson, Jalen Soliz MD Unavailable Unavailable Robertson, Jalen Soliz MD Unavailable Unavailable Robertson, Jalen Soliz MD Unavailable Unavailable Robertson, Jalen Soliz MD Unavailable Unavailable Robertson, Jalen Soliz MD Unavailable Unavailable Robertson, Jalen Soliz MD Unavailable Unavailable Robertson, Jalen Soliz MD Unavailable Unavailable RobertsonJalen MD Unavailable Unavailable Robertson, Jalen Soliz MD Unavailable Unavailable Robertson, Jalen Solzi MD Unavailable Unavailable Robertson, Jalen Soliz MD Unavailable Unavailable Robertson, Jalen Soliz MD Unavailable Unavailable Robertson, Jalen Soliz MD Unavailable Unavailable RobertsonJalen MD Unavailable Unavailable Robertson, Jalen Soliz MD Unavailable Unavailable RobertsonJalen MD Unavailable Unavailable Jalen Robertson MD Unavailable Unavailable Robertson, Jalen Soliz MD Unavailable Unavailable Robertson, Jalen Soliz MD Unavailable Unavailable RING, K MARIZOL PA Unavailable Unavailable RING, K MARIZOL PA Unavailable Unavailable RING, K MARIZOL PA Unavailable Unavailable RING, K MARIZOL PA Unavailable Unavailable RING, K MARIZOL PA Unavailable Unavailable RING, K MARIZOL PA Unavailable Unavailable RING, K MARIZOL PA Unavailable Unavailable RING, K MARIZOL PA Unavailable Unavailable RING, K MARIZOL PA Unavailable Unavailable RING, K MARIZOL PA Unavailable Unavailable RING, K MARIZOL PA Unavailable Unavailable RING, K MARIZOL PA Unavailable Unavailable RING, K MARIZOL PA Unavailable Unavailable RING, K MARIZOL PA Unavailable Unavailable RING, K MARIZOL PA Unavailable Unavailable RING, K MARIZOL PA Unavailable Unavailable RING, K MARIZOL PA Unavailable Unavailable RING, K MARIZOL PA Unavailable Unavailable RING, K MARIZOL PA Unavailable Unavailable RING, K MARIZOL PA Unavailable Unavailable Re-disclosure Warning The records that you are about to access may contain information from federally-assisted alcohol or drug abuse programs. If such information is present, then the following federally mandated warning applies: This information has been disclosed to you from records protected by federal confidentiality rules (42 CFR part 2). The federal rules prohibit you from making any further disclosure of this information unless further disclosure is expressly permitted by the written consent of the person to whom it pertains or as otherwise permitted by 42 CFR part 2. A general authorization for the release of medical or other information is NOT sufficient for this purpose. The Federal rules restrict any use of the information to criminally investigate or prosecute any alcohol or drug abuse patient.The records that you are about to access may contain highly sensitive health information, the redisclosure of which is protected by Article 27-F of the [facility] Public Health law. If you continue you may have access to information: Regarding HIV / AIDS; Provided by facilities licensed or operated by the [facility] Office of Mental Health; or Provided by the [facility] Office for People With Developmental Disabilities. If such information is present, then the following [facility] mandated warning applies: This information has been disclosed to you from confidential records which are protected by state law. State law prohibits you from making any further disclosure of this information without the specific written consent of the person to whom it pertains, or as otherwise permitted by law. Any unauthorized further disclosure in violation of state law may result in a fine or half-way sentence or both. A general authorization for the release of medical or other information is NOT sufficient authorization for further disc losure. Family History Family Member Name Family Member Gender Family Member Status Date o f Status Description Data Source(s) Unknown Unknown Problem [facility] ([facility] Unknown Male Problem [facility] ([facility]) Encounters Encounter Providers Location Date Indications Data Source(s ) Outpatient Attender: Martínez FRANCOIS 02/10/2020 07:52:24 PM EDT [facility] Outpatient Attender: Alethea MIN Sherrill Rakesh ce 01/20/2020 10:00:00 AM EDT [facility] ([facility] Outpatient Attender: Alethea MIN Sherrill Offi ce 11/25/2019 10:20:00 AM EDT [facility] ([facility] Outpatient Attender: MARIZOL Navarro 11/06/2019 03:15:00 PM EST [facility] ([facility], [facility]) Outpatient Attender: Alethea MIN Sherrill Rakesh ce 09/05/2019 08:15:00 AM EST [facility] ([facility] Medications Medication Brand Name Start Date Product Form Dose Route Admi nistrative Instructions Pharmacy Instructions Status Indications Reaction Description Data Source(s) 12 HR Bupropion Hydrochloride 200 MG Extended Release Oral Tablet [Wellbutrin] Wellbutrin SR 11/25/2019 12:00:00 AM EDT ORAL active MED[facility] ([facility] montelukast 10 MG Oral Tablet Montelukast Sodium 11/25/2019 12:00:00 AM EDT active [facility] ([facility] Azelastine HCL (Nasal) Azelastine HCL (Nasal) 11/25/2019 12:00:00 AM E DT active [facility] ([facility] tramadol hydrochloride 50 MG Oral Tablet Tramadol HCL 11/06/2019 12:00:00 AM EST ORAL active [facility] ([facility]) 50 mg 11/06/2019 12:00:00 AM EST tablet 6 TAKE ONE TABLET BY MOUTH EVERY 12 HOURS NEEDED FOR PAIN MAXIMUM DAILY DOSE = 2 TAKE ONE TABLET BY MOUTH EVERY 12 HOURS NEEDED FOR PAIN MAXIMUM DAILY DOSE = 2 SOLD: 11/06/2019 [facility] Hydroxyzine Hydrochloride 25 MG Oral Tablet Hydroxyzine HCL 09/05/2019 12:00:00 AM EST ORAL active [facility] ([facility] 12 HR Bupropion Hydrochloride 150 MG Extended Release Oral Tablet [Wellbutrin] Wellbutrin SR 09/05/2019 12:00:00 AM EST ORAL completed [facility] ([facility] Lactobacillus acidophilus [id number] UNT Oral Capsule Probiot ic Acidophilus 09/05/2019 12:00:00 AM EST ORAL active [facility] ([facility] Turmeric 09/05/2019 12:00:00 AM EST active [facility] ([facility] Insurance Providers Payer name Policy type / Coverage type Policy ID Covered constitution party ID Covered constitution party's relationship to carter Policy Carter Plan Information [facility] [id number] SP [id number] [facility] [id number] Self [id number] [facility] [id number] Self [id number] [facility] [id number] SP [id number] [facility] COMMUNITY PLAN MCDO [id number] SP [id number] [employer]) Workers Compensation [id number] Self [id number] [employer] O [id number] S [id number] [employer]) Workers Compensation [id number] Self [id number] [place] SP [facility] Health Maintenance Organization (HMO) [id number] Self [id number] [facility](MCAID) O [id number] S [id number] [employer] O [id number] S [id number] [employer] [id number] SP [id number] [employer] [id number] SP [id number] [facility](MCAID) O [id number] S [id number] [facility] O [id number] S [id number] MEDICAID [facility] [id number] SP [id number] [facility] COMMUNITY PLAN [id number] SP [id number] [employer] [id number] Self [id number] YAMIL [id number] SP [id number] [place] [place] Other Self Problems, Conditions, and Diagnoses Code Display Name Description Problem Type Effective Dates Data Source(s) 349496582 Seasonal allergic rhinitis Seasonal allergic rhinitis Problem 11/25/2019 12:00:00 AM EDT [facility] (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 Results ID Date Data Source [id number] 09/05/2019 10:40:00 AM EST [facility] ([facility] Name Value Range Interpretation Code Description Data Arlette rce(s) Supporting Document(s) Specific [place] Laboratory test result 1.00-1.03 [facility] ([facility] Color Urine Laboratory test result M EDENT ([facility] Appearance of Urine Laboratory test result [facility] ([facility] Bilirubin.total [Presence] in Urine by Test strip Laboratory test res ult [facility] ([facility] Glucose Urine Laboratory test result [facility] ([facility] PH Urine 5.5 5.0-8.0 [facility] Protein Urine Laboratory test result [facility] ([facility] Ketones Laboratory test result [facility] ([facility] Blood Urine Laboratory test result M EDENT ([facility] Nitrite Laboratory test result [facility] ([facility] Urobilinogen 0.2 EU/dl 0.2-1.0 [facility] ([facility] Leukocytes Laboratory test result ME DENT ([facility] ID Date Data Source [id number] 09/05/2019 10:40:00 AM EST [facility] ([facility] Name Value Range Interpretation Code Description Data Arlette rce(s) Supporting Document(s) Glu 81 mg/dL 70-110 [facility] CHRONIC KIDNEY DISEASE STAGING PER NKF: MALE GFR INTERPRETATION: 20-49 YRS: >60 mL/min Normal 50-59 YRS: >56 mL/min Normal 60-69 YRS: >49 mL/min Normal 70-79 YRS: >42 mL/min Normal 80 and above >35 mL/min Normal FEMALE GRF INTERPRETATION: 20-39 YRS: >60 mL/min Normal 40-49 YRS: >58 mL/min Normal 50-59 YRS: >51 mL/min Normal 60-69 YRS: >45 mL/min Normal 70-79 YRS: >39 mL/min Normal 80 and above >32 mL/min NormalNORMAL RANGES Age WBC RBC HGB HCT MCV PLT Adult M 4.1-10.9 4.20-6.30 12.0-18.0 37.0-51.0 80-97 140-440 Adult F 4.1-10.9 4.04-5.48 12.0-18.0 37.0-51.0 80-97 140-440 0- 1 Yr 5.0-20.0 3.9-5.9 15-18 MV: 44 MV: 91 MV: 277 2-9 Yr. 6.0-17.0 3.8-5.4 11-13 MV: 37 MV: 78 MV: 300 10 Yrs. 5.0-13.0 3.8-5.4 12-15 MV: 39 MV: 80 MV: 250 NOTE: * FOR ADULT BLACK MALES AND FEMALES, NORMAL WBC IS 2.9-7.7 K/ML * FOR ADULT BLACK MALES AND FEMALES, NORMAL RBC,HGB, AND HCT IS 5% LESS SOURCE FOR DATA: ANNIKA YOHO 1800 OPERATION MANUAL( AUTOMATED BLOOD COUNTS AND DIFF.) APPENDIX B-3 BUN/Creatinine Ratio 13.8 Calc [facility] ([facility] CHRONIC KIDNEY DISEASE STAGING PER NKF: MALE GFR INTERPRETATION: 20-49 YRS: >60 mL/min Normal 50-59 YRS: >56 mL/min Normal 60-69 YRS: >49 mL/min Normal 70-79 YRS: >42 mL/min Normal 80 and above >35 mL/min Normal FEMALE GRF INTERPRETATION: 20-39 YRS: >60 mL/min Normal 40-49 YRS: >58 mL/min Normal 50-59 YRS: >51 mL/min Normal 60-69 YRS: >45 mL/min Normal 70-79 YRS: >39 mL/min Normal 80 and above >32 mL/min NormalNORMAL RANGES Age WBC RBC HGB HCT MCV PLT Adult M 4.1-10.9 4.20-6.30 12.0-18.0 37.0-51.0 80-97 140-440 Adult F 4.1-10.9 4.04-5.48 12.0-18.0 37.0-51.0 80-97 140-440 0- 1 Yr 5.0-20.0 3.9-5.9 15-18 MV: 44 MV: 91 MV: 277 2-9 Yr. 6.0-17.0 3.8-5.4 11-13 MV: 37 MV: 78 MV: 300 10 Yrs. 5.0-13.0 3.8-5.4 12-15 MV: 39 MV: 80 MV: 250 NOTE: * FOR ADULT BLACK MALES AND FEMALES, NORMAL WBC IS 2.9-7.7 K/ML * FOR ADULT BLACK MALES AND FEMALES, NORMAL RBC,HGB, AND HCT IS 5% LESS SOURCE FOR DATA: ANNIKA DYN 1800 OPERATION MANUAL( AUTOMATED BLOOD COUNTS AND DIFF.) APPENDIX B-3 Creat 0.9 mg/dL 0.7-1.2 [facility] CHRONIC KIDNEY DISEASE STAGING PER NKF: MALE GFR INTERPRETATION: 20-49 YRS: >60 mL/min Normal 50-59 YRS: >56 mL/min Normal 60-69 YRS: >49 mL/min Normal 70-79 YRS: >42 mL/min Normal 80 and above >35 mL/min Normal FEMALE GRF INTERPRETATION: 20-39 YRS: >60 mL/min Normal 40-49 YRS: >58 mL/min Normal 50-59 YRS: >51 mL/min Normal 60-69 YRS: >45 mL/min Normal 70-79 YRS: >39 mL/min Normal 80 and above >32 mL/min NormalNORMAL RANGES Age WBC RBC HGB HCT MCV PLT Adult M 4.1-10.9 4.20-6.30 12.0-18.0 37.0-51.0 80-97 140-440 Adult F 4.1-10.9 4.04-5.48 12.0-18.0 37.0-51.0 80-97 140-440 0- 1 Yr 5.0-20.0 3.9-5.9 15-18 MV: 44 MV: 91 MV: 277 2-9 Yr. 6.0-17.0 3.8-5.4 11-13 MV: 37 MV: 78 MV: 300 10 Yrs. 5.0-13.0 3.8-5.4 12-15 MV: 39 MV: 80 MV: 250 NOTE: * FOR ADULT BLACK MALES AND FEMALES, NORMAL WBC IS 2.9-7.7 K/ML * FOR ADULT BLACK MALES AND FEMALES, NORMAL RBC,HGB, AND HCT IS 5% LESS SOURCE FOR DATA: ANNIKA DYN 1800 OPERATION MANUAL( AUTOMATED BLOOD COUNTS AND DIFF.) APPENDIX B-3 BUN 12 mg/dL 04-25 [facility] CHRONIC KIDNEY DISEASE STAGING PER NKF: MALE GFR INTERPRETATION: 20-49 YRS: >60 mL/min Normal 50-59 YRS: >56 mL/min Normal 60-69 YRS: >49 mL/min Normal 70-79 YRS: >42 mL/min Normal 80 and above >35 mL/min Normal FEMALE GRF INTERPRETATION: 20-39 YRS: >60 mL/min Normal 40-49 YRS: >58 mL/min Normal 50-59 YRS: >51 mL/min Normal 60-69 YRS: >45 mL/min Normal 70-79 YRS: >39 mL/min Normal 80 and above >32 mL/min NormalNORMAL RANGES Age WBC RBC HGB HCT MCV PLT Adult M 4.1-10.9 4.20-6.30 12.0-18.0 37.0-51.0 80-97 140-440 Adult F 4.1-10.9 4.04-5.48 12.0-18.0 37.0-51.0 80-97 140-440 0- 1 Yr 5.0-20.0 3.9-5.9 15-18 MV: 44 MV: 91 MV: 277 2-9 Yr. 6.0-17.0 3.8-5.4 11-13 MV: 37 MV: 78 MV: 300 10 Yrs. 5.0-13.0 3.8-5.4 12-15 MV: 39 MV: 80 MV: 250 NOTE: * FOR ADULT BLACK MALES AND FEMALES, NORMAL WBC IS 2.9-7.7 K/ML * FOR ADULT BLACK MALES AND FEMALES, NORMAL RBC,HGB, AND HCT IS 5% LESS SOURCE FOR DATA: Runteq 1800 OPERATION MANUAL( AUTOMATED BLOOD COUNTS AND DIFF.) APPENDIX B-3 Na 138 mmol/L 136-145 [facility] ([facility] CHRONIC KIDNEY DISEASE STAGING PER NKF: MALE GFR INTERPRETATION: 20-49 YRS: >60 mL/min Normal 50-59 YRS: >56 mL/min Normal 60-69 YRS: >49 mL/min Normal 70-79 YRS: >42 mL/min Normal 80 and above >35 mL/min Normal FEMALE GRF INTERPRETATION: 20-39 YRS: >60 mL/min Normal 40-49 YRS: >58 mL/min Normal 50-59 YRS: >51 mL/min Normal 60-69 YRS: >45 mL/min Normal 70-79 YRS: >39 mL/min Normal 80 and above >32 mL/min NormalNORMAL RANGES Age WBC RBC HGB HCT MCV PLT Adult M 4.1-10.9 4.20-6.30 12.0-18.0 37.0-51.0 80-97 140-440 Adult F 4.1-10.9 4.04-5.48 12.0-18.0 37.0-51.0 80-97 140-440 0- 1 Yr 5.0-20.0 3.9-5.9 15-18 MV: 44 MV: 91 MV: 277 2-9 Yr. 6.0-17.0 3.8-5.4 11-13 MV: 37 MV: 78 MV: 300 10 Yrs. 5.0-13.0 3.8-5.4 12-15 MV: 39 MV: 80 MV: 250 NOTE: * FOR ADULT BLACK MALES AND FEMALES, NORMAL WBC IS 2.9-7.7 K/ML * FOR ADULT BLACK MALES AND FEMALES, NORMAL RBC,HGB, AND HCT IS 5% LESS SOURCE FOR DATA: Runteq 1800 OPERATION MANUAL( AUTOMATED BLOOD COUNTS AND DIFF.) APPENDIX B-3 K 4.3 mmol/L 3.5-5.1 [facility] ([facility] CHRONIC KIDNEY DISEASE STAGING PER NKF: MALE GFR INTERPRETATION: 20-49 YRS: >60 mL/min Normal 50-59 YRS: >56 mL/min Normal 60-69 YRS: >49 mL/min Normal 70-79 YRS: >42 mL/min Normal 80 and above >35 mL/min Normal FEMALE GRF INTERPRETATION: 20-39 YRS: >60 mL/min Normal 40-49 YRS: >58 mL/min Normal 50-59 YRS: >51 mL/min Normal 60-69 YRS: >45 mL/min Normal 70-79 YRS: >39 mL/min Normal 80 and above >32 mL/min NormalNORMAL RANGES Age WBC RBC HGB HCT MCV PLT Adult M 4.1-10.9 4.20-6.30 12.0-18.0 37.0-51.0 80-97 140-440 Adult F 4.1-10.9 4.04-5.48 12.0-18.0 37.0-51.0 80-97 140-440 0- 1 Yr 5.0-20.0 3.9-5.9 15-18 MV: 44 MV: 91 MV: 277 2-9 Yr. 6.0-17.0 3.8-5.4 11-13 MV: 37 MV: 78 MV: 300 10 Yrs. 5.0-13.0 3.8-5.4 12-15 MV: 39 MV: 80 MV: 250 NOTE: * FOR ADULT BLACK MALES AND FEMALES, NORMAL WBC IS 2.9-7.7 K/ML * FOR ADULT BLACK MALES AND FEMALES, NORMAL RBC,HGB, AND HCT IS 5% LESS SOURCE FOR DATA: PhotoShelter DYN 1800 OPERATION MANUAL( AUTOMATED BLOOD COUNTS AND DIFF.) APPENDIX B-3 CL 102.6 mmol/L 98.0-107.0 [facility] ([facility] CHRONIC KIDNEY DISEASE STAGING PER NKF: MALE GFR INTERPRETATION: 20-49 YRS: >60 mL/min Normal 50-59 YRS: >56 mL/min Normal 60-69 YRS: >49 mL/min Normal 70-79 YRS: >42 mL/min Normal 80 and above >35 mL/min Normal FEMALE GRF INTERPRETATION: 20-39 YRS: >60 mL/min Normal 40-49 YRS: >58 mL/min Normal 50-59 YRS: >51 mL/min Normal 60-69 YRS: >45 mL/min Normal 70-79 YRS: >39 mL/min Normal 80 and above >32 mL/min NormalNORMAL RANGES Age WBC RBC HGB HCT MCV PLT Adult M 4.1-10.9 4.20-6.30 12.0-18.0 37.0-51.0 80-97 140-440 Adult F 4.1-10.9 4.04-5.48 12.0-18.0 37.0-51.0 80-97 140-440 0- 1 Yr 5.0-20.0 3.9-5.9 15-18 MV: 44 MV: 91 MV: 277 2-9 Yr. 6.0-17.0 3.8-5.4 11-13 MV: 37 MV: 78 MV: 300 10 Yrs. 5.0-13.0 3.8-5.4 12-15 MV: 39 MV: 80 MV: 250 NOTE: * FOR ADULT BLACK MALES AND FEMALES, NORMAL WBC IS 2.9-7.7 K/ML * FOR ADULT BLACK MALES AND FEMALES, NORMAL RBC,HGB, AND HCT IS 5% LESS SOURCE FOR DATA: [employer]helter DYN 1800 OPERATION MANUAL( AUTOMATED BLOOD COUNTS AND DIFF.) APPENDIX B-3 CA 9.3 mg/dL 8.6-10.2 [facility] CHRONIC KIDNEY DISEASE STAGING PER NKF: MALE GFR INTERPRETATION: 20-49 YRS: >60 mL/min Normal 50-59 YRS: >56 mL/min Normal 60-69 YRS: >49 mL/min Normal 70-79 YRS: >42 mL/min Normal 80 and above >35 mL/min Normal FEMALE GRF INTERPRETATION: 20-39 YRS: >60 mL/min Normal 40-49 YRS: >58 mL/min Normal 50-59 YRS: >51 mL/min Normal 60-69 YRS: >45 mL/min Normal 70-79 YRS: >39 mL/min Normal 80 and above >32 mL/min NormalNORMAL RANGES Age WBC RBC HGB HCT MCV PLT Adult M 4.1-10.9 4.20-6.30 12.0-18.0 37.0-51.0 80-97 140-440 Adult F 4.1-10.9 4.04-5.48 12.0-18.0 37.0-51.0 80-97 140-440 0- 1 Yr 5.0-20.0 3.9-5.9 15-18 MV: 44 MV: 91 MV: 277 2-9 Yr. 6.0-17.0 3.8-5.4 11-13 MV: 37 MV: 78 MV: 300 10 Yrs. 5.0-13.0 3.8-5.4 12-15 MV: 39 MV: 80 MV: 250 NOTE: * FOR ADULT BLACK MALES AND FEMALES, NORMAL WBC IS 2.9-7.7 K/ML * FOR ADULT BLACK MALES AND FEMALES, NORMAL RBC,HGB, AND HCT IS 5% LESS SOURCE FOR DATA: Runteq 1800 OPERATION MANUAL( AUTOMATED BLOOD COUNTS AND DIFF.) APPENDIX B-3 TP 6.4 g/dL 6.6-8.7 Below low normal [facility] ( [facility] CHRONIC KIDNEY DISEASE STAGING PER NKF: MALE GFR INTERPRETATION: 20-49 YRS: >60 mL/min Normal 50-59 YRS: >56 mL/min Normal 60-69 YRS: >49 mL/min Normal 70-79 YRS: >42 mL/min Normal 80 and above >35 mL/min Normal FEMALE GRF INTERPRETATION: 20-39 YRS: >60 mL/min Normal 40-49 YRS: >58 mL/min Normal 50-59 YRS: >51 mL/min Normal 60-69 YRS: >45 mL/min Normal 70-79 YRS: >39 mL/min Normal 80 and above >32 mL/min NormalNORMAL RANGES Age WBC RBC HGB HCT MCV PLT Adult M 4.1-10.9 4.20-6.30 12.0-18.0 37.0-51.0 80-97 140-440 Adult F 4.1-10.9 4.04-5.48 12.0-18.0 37.0-51.0 80-97 140-440 0- 1 Yr 5.0-20.0 3.9-5.9 15-18 MV: 44 MV: 91 MV: 277 2-9 Yr. 6.0-17.0 3.8-5.4 11-13 MV: 37 MV: 78 MV: 300 10 Yrs. 5.0-13.0 3.8-5.4 12-15 MV: 39 MV: 80 MV: 250 NOTE: * FOR ADULT BLACK MALES AND FEMALES, NORMAL WBC IS 2.9-7.7 K/ML * FOR ADULT BLACK MALES AND FEMALES, NORMAL RBC,HGB, AND HCT IS 5% LESS SOURCE FOR DATA: ANNIKA DYN 1800 OPERATION MANUAL( AUTOMATED BLOOD COUNTS AND DIFF.) APPENDIX B-3 Co2 27.3 mmol/L 22.0-29.0 [facility] ([facility] CHRONIC KIDNEY DISEASE STAGING PER NKF: MALE GFR INTERPRETATION: 20-49 YRS: >60 mL/min Normal 50-59 YRS: >56 mL/min Normal 60-69 YRS: >49 mL/min Normal 70-79 YRS: >42 mL/min Normal 80 and above >35 mL/min Normal FEMALE GRF INTERPRETATION: 20-39 YRS: >60 mL/min Normal 40-49 YRS: >58 mL/min Normal 50-59 YRS: >51 mL/min Normal 60-69 YRS: >45 mL/min Normal 70-79 YRS: >39 mL/min Normal 80 and above >32 mL/min NormalNORMAL RANGES Age WBC RBC HGB HCT MCV PLT Adult M 4.1-10.9 4.20-6.30 12.0-18.0 37.0-51.0 80-97 140-440 Adult F 4.1-10.9 4.04-5.48 12.0-18.0 37.0-51.0 80-97 140-440 0- 1 Yr 5.0-20.0 3.9-5.9 15-18 MV: 44 MV: 91 MV: 277 2-9 Yr. 6.0-17.0 3.8-5.4 11-13 MV: 37 MV: 78 MV: 300 10 Yrs. 5.0-13.0 3.8-5.4 12-15 MV: 39 MV: 80 MV: 250 NOTE: * FOR ADULT BLACK MALES AND FEMALES, NORMAL WBC IS 2.9-7.7 K/ML * FOR ADULT BLACK MALES AND FEMALES, NORMAL RBC,HGB, AND HCT IS 5% LESS SOURCE FOR DATA: ANNIKA DYN 1800 OPERATION MANUAL( AUTOMATED BLOOD COUNTS AND DIFF.) APPENDIX B-3 Alb 4.3 g/dL 3.5-5.2 [facility] ([facility] CHRONIC KIDNEY DISEASE STAGING PER NKF: MALE GFR INTERPRETATION: 20-49 YRS: >60 mL/min Normal 50-59 YRS: >56 mL/min Normal 60-69 YRS: >49 mL/min Normal 70-79 YRS: >42 mL/min Normal 80 and above >35 mL/min Normal FEMALE GRF INTERPRETATION: 20-39 YRS: >60 mL/min Normal 40-49 YRS: >58 mL/min Normal 50-59 YRS: >51 mL/min Normal 60-69 YRS: >45 mL/min Normal 70-79 YRS: >39 mL/min Normal 80 and above >32 mL/min NormalNORMAL RANGES Age WBC RBC HGB HCT MCV PLT Adult M 4.1-10.9 4.20-6.30 12.0-18.0 37.0-51.0 80-97 140-440 Adult F 4.1-10.9 4.04-5.48 12.0-18.0 37.0-51.0 80-97 140-440 0- 1 Yr 5.0-20.0 3.9-5.9 15-18 MV: 44 MV: 91 MV: 277 2-9 Yr. 6.0-17.0 3.8-5.4 11-13 MV: 37 MV: 78 MV: 300 10 Yrs. 5.0-13.0 3.8-5.4 12-15 MV: 39 MV: 80 MV: 250 NOTE: * FOR ADULT BLACK MALES AND FEMALES, NORMAL WBC IS 2.9-7.7 K/ML * FOR ADULT BLACK MALES AND FEMALES, NORMAL RBC,HGB, AND HCT IS 5% LESS SOURCE FOR DATA: ANNIKA DYN 1800 OPERATION MANUAL( AUTOMATED BLOOD COUNTS AND DIFF.) APPENDIX B-3 A/G Ratio 2.0 Calc [facility] CHRONIC KIDNEY DISEASE STAGING PER NKF: MALE GFR INTERPRETATION: 20-49 YRS: >60 mL/min Normal 50-59 YRS: >56 mL/min Normal 60-69 YRS: >49 mL/min Normal 70-79 YRS: >42 mL/min Normal 80 and above >35 mL/min Normal FEMALE GRF INTERPRETATION: 20-39 YRS: >60 mL/min Normal 40-49 YRS: >58 mL/min Normal 50-59 YRS: >51 mL/min Normal 60-69 YRS: >45 mL/min Normal 70-79 YRS: >39 mL/min Normal 80 and above >32 mL/min NormalNORMAL RANGES Age WBC RBC HGB HCT MCV PLT Adult M 4.1-10.9 4.20-6.30 12.0-18.0 37.0-51.0 80-97 140-440 Adult F 4.1-10.9 4.04-5.48 12.0-18.0 37.0-51.0 80-97 140-440 0- 1 Yr 5.0-20.0 3.9-5.9 15-18 MV: 44 MV: 91 MV: 277 2-9 Yr. 6.0-17.0 3.8-5.4 11-13 MV: 37 MV: 78 MV: 300 10 Yrs. 5.0-13.0 3.8-5.4 12-15 MV: 39 MV: 80 MV: 250 NOTE: * FOR ADULT BLACK MALES AND FEMALES, NORMAL WBC IS 2.9-7.7 K/ML * FOR ADULT BLACK MALES AND FEMALES, NORMAL RBC,HGB, AND HCT IS 5% LESS SOURCE FOR DATA: Runteq 1800 OPERATION MANUAL( AUTOMATED BLOOD COUNTS AND DIFF.) APPENDIX B-[address] [facility] CHRONIC KIDNEY DISEASE STAGING PER NKF: MALE GFR INTERPRETATION: 20-49 YRS: >60 mL/min Normal 50-59 YRS: >56 mL/min Normal 60-69 YRS: >49 mL/min Normal 70-79 YRS: >42 mL/min Normal 80 and above >35 mL/min Normal FEMALE GRF INTERPRETATION: 20-39 YRS: >60 mL/min Normal 40-49 YRS: >58 mL/min Normal 50-59 YRS: >51 mL/min Normal 60-69 YRS: >45 mL/min Normal 70-79 YRS: >39 mL/min Normal 80 and above >32 mL/min NormalNORMAL RANGES Age WBC RBC HGB HCT MCV PLT Adult M 4.1-10.9 4.20-6.30 12.0-18.0 37.0-51.0 80-97 140-440 Adult F 4.1-10.9 4.04-5.48 12.0-18.0 37.0-51.0 80-97 140-440 0- 1 Yr 5.0-20.0 3.9-5.9 15-18 MV: 44 MV: 91 MV: 277 2-9 Yr. 6.0-17.0 3.8-5.4 11-13 MV: 37 MV: 78 MV: 300 10 Yrs. 5.0-13.0 3.8-5.4 12-15 MV: 39 MV: 80 MV: 250 NOTE: * FOR ADULT BLACK MALES AND FEMALES, NORMAL WBC IS 2.9-7.7 K/ML * FOR ADULT BLACK MALES AND FEMALES, NORMAL RBC,HGB, AND HCT IS 5% LESS SOURCE FOR DATA: Runteq 1800 OPERATION MANUAL( AUTOMATED BLOOD COUNTS AND DIFF.) APPENDIX B-3 Ast (Sgot) 21 U/L 0-40 [facility] ([facility] [place] CHRONIC KIDNEY DISEASE STAGING PER NKF: MALE GFR INTERPRETATION: 20-49 YRS: >60 mL/min Normal 50-59 YRS: >56 mL/min Normal 60-69 YRS: >49 mL/min Normal 70-79 YRS: >42 mL/min Normal 80 and above >35 mL/min Normal FEMALE GRF INTERPRETATION: 20-39 YRS: >60 mL/min Normal 40-49 YRS: >58 mL/min Normal 50-59 YRS: >51 mL/min Normal 60-69 YRS: >45 mL/min Normal 70-79 YRS: >39 mL/min Normal 80 and above >32 mL/min NormalNORMAL RANGES Age WBC RBC HGB HCT MCV PLT Adult M 4.1-10.9 4.20-6.30 12.0-18.0 37.0-51.0 80-97 140-440 Adult F 4.1-10.9 4.04-5.48 12.0-18.0 37.0-51.0 80-97 140-440 0- 1 Yr 5.0-20.0 3.9-5.9 15-18 MV: 44 MV: 91 MV: 277 2-9 Yr. 6.0-17.0 3.8-5.4 11-13 MV: 37 MV: 78 MV: 300 10 Yrs. 5.0-13.0 3.8-5.4 12-15 MV: 39 MV: 80 MV: 250 NOTE: * FOR ADULT BLACK MALES AND FEMALES, NORMAL WBC IS 2.9-7.7 K/ML * FOR ADULT BLACK MALES AND FEMALES, NORMAL RBC,HGB, AND HCT IS 5% LESS SOURCE FOR DATA: Runteq 1800 OPERATION MANUAL( AUTOMATED BLOOD COUNTS AND DIFF.) APPENDIX B-3 Alt (SGPT) 18 U/L 0-41 [facility] ([facility] [place] CHRONIC KIDNEY DISEASE STAGING PER NKF: MALE GFR INTERPRETATION: 20-49 YRS: >60 mL/min Normal 50-59 YRS: >56 mL/min Normal 60-69 YRS: >49 mL/min Normal 70-79 YRS: >42 mL/min Normal 80 and above >35 mL/min Normal FEMALE GRF INTERPRETATION: 20-39 YRS: >60 mL/min Normal 40-49 YRS: >58 mL/min Normal 50-59 YRS: >51 mL/min Normal 60-69 YRS: >45 mL/min Normal 70-79 YRS: >39 mL/min Normal 80 and above >32 mL/min NormalNORMAL RANGES Age WBC RBC HGB HCT MCV PLT Adult M 4.1-10.9 4.20-6.30 12.0-18.0 37.0-51.0 80-97 140-440 Adult F 4.1-10.9 4.04-5.48 12.0-18.0 37.0-51.0 80-97 140-440 0- 1 Yr 5.0-20.0 3.9-5.9 15-18 MV: 44 MV: 91 MV: 277 2-9 Yr. 6.0-17.0 3.8-5.4 11-13 MV: 37 MV: 78 MV: 300 10 Yrs. 5.0-13.0 3.8-5.4 12-15 MV: 39 MV: 80 MV: 250 NOTE: * FOR ADULT BLACK MALES AND FEMALES, NORMAL WBC IS 2.9-7.7 K/ML * FOR ADULT BLACK MALES AND FEMALES, NORMAL RBC,HGB, AND HCT IS 5% LESS SOURCE FOR DATA: Runteq 1800 OPERATION MANUAL( AUTOMATED BLOOD COUNTS AND DIFF.) APPENDIX B-3 Tbili 0.36 mg/dL 0.0-1.2 [facility] CHRONIC KIDNEY DISEASE STAGING PER NKF: MALE GFR INTERPRETATION: 20-49 YRS: >60 mL/min Normal 50-59 YRS: >56 mL/min Normal 60-69 YRS: >49 mL/min Normal 70-79 YRS: >42 mL/min Normal 80 and above >35 mL/min Normal FEMALE GRF INTERPRETATION: 20-39 YRS: >60 mL/min Normal 40-49 YRS: >58 mL/min Normal 50-59 YRS: >51 mL/min Normal 60-69 YRS: >45 mL/min Normal 70-79 YRS: >39 mL/min Normal 80 and above >32 mL/min NormalNORMAL RANGES Age WBC RBC HGB HCT MCV PLT Adult M 4.1-10.9 4.20-6.30 12.0-18.0 37.0-51.0 80-97 140-440 Adult F 4.1-10.9 4.04-5.48 12.0-18.0 37.0-51.0 80-97 140-440 0- 1 Yr 5.0-20.0 3.9-5.9 15-18 MV: 44 MV: 91 MV: 277 2-9 Yr. 6.0-17.0 3.8-5.4 11-13 MV: 37 MV: 78 MV: 300 10 Yrs. 5.0-13.0 3.8-5.4 12-15 MV: 39 MV: 80 MV: 250 NOTE: * FOR ADULT BLACK MALES AND FEMALES, NORMAL WBC IS 2.9-7.7 K/ML * FOR ADULT BLACK MALES AND FEMALES, NORMAL RBC,HGB, AND HCT IS 5% LESS SOURCE FOR DATA: ANNIKA DYN 1800 OPERATION MANUAL( AUTOMATED BLOOD COUNTS AND DIFF.) APPENDIX B-3 Alp 59.6 U/L 40-129 [facility] ([facility] CHRONIC KIDNEY DISEASE STAGING PER NKF: MALE GFR INTERPRETATION: 20-49 YRS: >60 mL/min Normal 50-59 YRS: >56 mL/min Normal 60-69 YRS: >49 mL/min Normal 70-79 YRS: >42 mL/min Normal 80 and above >35 mL/min Normal FEMALE GRF INTERPRETATION: 20-39 YRS: >60 mL/min Normal 40-49 YRS: >58 mL/min Normal 50-59 YRS: >51 mL/min Normal 60-69 YRS: >45 mL/min Normal 70-79 YRS: >39 mL/min Normal 80 and above >32 mL/min NormalNORMAL RANGES Age WBC RBC HGB HCT MCV PLT Adult M 4.1-10.9 4.20-6.30 12.0-18.0 37.0-51.0 80-97 140-440 Adult F 4.1-10.9 4.04-5.48 12.0-18.0 37.0-51.0 80-97 140-440 0- 1 Yr 5.0-20.0 3.9-5.9 15-18 MV: 44 MV: 91 MV: 277 2-9 Yr. 6.0-17.0 3.8-5.4 11-13 MV: 37 MV: 78 MV: 300 10 Yrs. 5.0-13.0 3.8-5.4 12-15 MV: 39 MV: 80 MV: 250 NOTE: * FOR ADULT BLACK MALES AND FEMALES, NORMAL WBC IS 2.9-7.7 K/ML * FOR ADULT BLACK MALES AND FEMALES, NORMAL RBC,HGB, AND HCT IS 5% LESS SOURCE FOR DATA: Runteq 1800 OPERATION MANUAL( AUTOMATED BLOOD COUNTS AND DIFF.) APPENDIX B-3 Anion Gap 13 mmol/L [facility] CHRONIC KIDNEY DISEASE STAGING PER NKF: MALE GFR INTERPRETATION: 20-49 YRS: >60 mL/min Normal 50-59 YRS: >56 mL/min Normal 60-69 YRS: >49 mL/min Normal 70-79 YRS: >42 mL/min Normal 80 and above >35 mL/min Normal FEMALE GRF INTERPRETATION: 20-39 YRS: >60 mL/min Normal 40-49 YRS: >58 mL/min Normal 50-59 YRS: >51 mL/min Normal 60-69 YRS: >45 mL/min Normal 70-79 YRS: >39 mL/min Normal 80 and above >32 mL/min NormalNORMAL RANGES Age WBC RBC HGB HCT MCV PLT Adult M 4.1-10.9 4.20-6.30 12.0-18.0 37.0-51.0 80-97 140-440 Adult F 4.1-10.9 4.04-5.48 12.0-18.0 37.0-51.0 80-97 140-440 0- 1 Yr 5.0-20.0 3.9-5.9 15-18 MV: 44 MV: 91 MV: 277 2-9 Yr. 6.0-17.0 3.8-5.4 11-13 MV: 37 MV: 78 MV: 300 10 Yrs. 5.0-13.0 3.8-5.4 12-15 MV: 39 MV: 80 MV: 250 NOTE: * FOR ADULT BLACK MALES AND FEMALES, NORMAL WBC IS 2.9-7.7 K/ML * FOR ADULT BLACK MALES AND FEMALES, NORMAL RBC,HGB, AND HCT IS 5% LESS SOURCE FOR DATA: ANNIKA DYN 1800 OPERATION MANUAL( AUTOMATED BLOOD COUNTS AND DIFF.) APPENDIX B-3 Osmolality-Calculated 275.1 Calc [facility] ([facility] CHRONIC KIDNEY DISEASE STAGING PER NKF: MALE GFR INTERPRETATION: 20-49 YRS: >60 mL/min Normal 50-59 YRS: >56 mL/min Normal 60-69 YRS: >49 mL/min Normal 70-79 YRS: >42 mL/min Normal 80 and above >35 mL/min Normal FEMALE GRF INTERPRETATION: 20-39 YRS: >60 mL/min Normal 40-49 YRS: >58 mL/min Normal 50-59 YRS: >51 mL/min Normal 60-69 YRS: >45 mL/min Normal 70-79 YRS: >39 mL/min Normal 80 and above >32 mL/min NormalNORMAL RANGES Age WBC RBC HGB HCT MCV PLT Adult M 4.1-10.9 4.20-6.30 12.0-18.0 37.0-51.0 80-97 140-440 Adult F 4.1-10.9 4.04-5.48 12.0-18.0 37.0-51.0 80-97 140-440 0- 1 Yr 5.0-20.0 3.9-5.9 15-18 MV: 44 MV: 91 MV: 277 2-9 Yr. 6.0-17.0 3.8-5.4 11-13 MV: 37 MV: 78 MV: 300 10 Yrs. 5.0-13.0 3.8-5.4 12-15 MV: 39 MV: 80 MV: 250 NOTE: * FOR ADULT BLACK MALES AND FEMALES, NORMAL WBC IS 2.9-7.7 K/ML * FOR ADULT BLACK MALES AND FEMALES, NORMAL RBC,HGB, AND HCT IS 5% LESS SOURCE FOR DATA: Runteq 1800 OPERATION MANUAL( AUTOMATED BLOOD COUNTS AND DIFF.) APPENDIX B-3 eGFR 115 # [facility] ( [facility] CHRONIC KIDNEY DISEASE STAGING PER NKF: MALE GFR INTERPRETATION: 20-49 YRS: >60 mL/min Normal 50-59 YRS: >56 mL/min Normal 60-69 YRS: >49 mL/min Normal 70-79 YRS: >42 mL/min Normal 80 and above >35 mL/min Normal FEMALE GRF INTERPRETATION: 20-39 YRS: >60 mL/min Normal 40-49 YRS: >58 mL/min Normal 50-59 YRS: >51 mL/min Normal 60-69 YRS: >45 mL/min Normal 70-79 YRS: >39 mL/min Normal 80 and above >32 mL/min NormalNORMAL RANGES Age WBC RBC HGB HCT MCV PLT Adult M 4.1-10.9 4.20-6.30 12.0-18.0 37.0-51.0 80-97 140-440 Adult F 4.1-10.9 4.04-5.48 12.0-18.0 37.0-51.0 80-97 140-440 0- 1 Yr 5.0-20.0 3.9-5.9 15-18 MV: 44 MV: 91 MV: 277 2-9 Yr. 6.0-17.0 3.8-5.4 11-13 MV: 37 MV: 78 MV: 300 10 Yrs. 5.0-13.0 3.8-5.4 12-15 MV: 39 MV: 80 MV: 250 NOTE: * FOR ADULT BLACK MALES AND FEMALES, NORMAL WBC IS 2.9-7.7 K/ML * FOR ADULT BLACK MALES AND FEMALES, NORMAL RBC,HGB, AND HCT IS 5% LESS SOURCE FOR DATA: ANNIKA DYN 1800 OPERATION MANUAL( AUTOMATED BLOOD COUNTS AND DIFF.) APPENDIX B-3 eGFR Non-Afr. [place] 99 # [facility] ([facility] CHRONIC KIDNEY DISEASE STAGING PER NKF: MALE GFR INTERPRETATION: 20-49 YRS: >60 mL/min Normal 50-59 YRS: >56 mL/min Normal 60-69 YRS: >49 mL/min Normal 70-79 YRS: >42 mL/min Normal 80 and above >35 mL/min Normal FEMALE GRF INTERPRETATION: 20-39 YRS: >60 mL/min Normal 40-49 YRS: >58 mL/min Normal 50-59 YRS: >51 mL/min Normal 60-69 YRS: >45 mL/min Normal 70-79 YRS: >39 mL/min Normal 80 and above >32 mL/min NormalNORMAL RANGES Age WBC RBC HGB HCT MCV PLT Adult M 4.1-10.9 4.20-6.30 12.0-18.0 37.0-51.0 80- 140-440 Adult F 4.1-10.9 4.04-5.48 12.0-18.0 37.0-51.0 140-440 0- 1 Yr 5.0-20.0 3.9-5.9 15-18 MV: 44 MV: 91 MV: 277 2-9 Yr. 6.0-17.0 3.8-5.4 11-13 MV: 37 MV: 78 MV: 300 10 Yrs. 5.0-13.0 3.8-5.4 12-15 MV: 39 MV: 80 MV: 250 NOTE: * FOR ADULT BLACK MALES AND FEMALES, NORMAL WBC IS 2.9-7.7 K/ML * FOR ADULT BLACK MALES AND FEMALES, NORMAL RBC,HGB, AND HCT IS 5% LESS SOURCE FOR DATA: PhotoShelter DYN 1800 OPERATION MANUAL( AUTOMATED BLOOD COUNTS AND DIFF.) APPENDIX B-3 ID Date Data Source [id number] 09/05/2019 10:40:00 AM KATHYA MARTINEZ ([facility] Name Value Range Interpretation Code Description Data Arlette rce(s) Supporting Document(s) WBC 7.2 10E3/uL 4.1-10.9 JUAN ([facility] CHRONIC KIDNEY DISEASE STAGING PER NKF: MALE GFR INTERPRETATION: 20-49 YRS: >60 mL/min Normal 50-59 YRS: >56 mL/min Normal 60-69 YRS: >49 mL/min Normal 70-79 YRS: >42 mL/min Normal 80 and above >35 mL/min Normal FEMALE GRF INTERPRETATION: 20-39 YRS: >60 mL/min Normal 40-49 YRS: >58 mL/min Normal 50-59 YRS: >51 mL/min Normal 60-69 YRS: >45 mL/min Normal 70-79 YRS: >39 mL/min Normal 80 and above >32 mL/min NormalNORMAL RANGES Age WBC RBC HGB HCT MCV PLT Adult M 4.1-10.9 4.20-6.30 12.0-18.0 37.0-51.0 80-97 140-440 Adult F 4.1-10.9 4.04-5.48 12.0-18.0 37.0-51.0 80-97 140-440 0- 1 Yr 5.0-20.0 3.9-5.9 15-18 MV: 44 MV: 91 MV: 277 2-9 Yr. 6.0-17.0 3.8-5.4 11-13 MV: 37 MV: 78 MV: 300 10 Yrs. 5.0-13.0 3.8-5.4 12-15 MV: 39 MV: 80 MV: 250 NOTE: * FOR ADULT BLACK MALES AND FEMALES, NORMAL WBC IS 2.9-7.7 K/ML * FOR ADULT BLACK MALES AND FEMALES, NORMAL RBC,HGB, AND HCT IS 5% LESS SOURCE FOR DATA: Runteq 1800 OPERATION MANUAL( AUTOMATED BLOOD COUNTS AND DIFF.) APPENDIX B-3 RBC 4.86 10E6/uL .-6.30 [facility] ([facility] CHRONIC KIDNEY DISEASE STAGING PER NKF: MALE GFR INTERPRETATION: 20-49 YRS: >60 mL/min Normal 50-59 YRS: >56 mL/min Normal 60-69 YRS: >49 mL/min Normal 70-79 YRS: >42 mL/min Normal 80 and above >35 mL/min Normal FEMALE GRF INTERPRETATION: 20-39 YRS: >60 mL/min Normal 40-49 YRS: >58 mL/min Normal 50-59 YRS: >51 mL/min Normal 60-69 YRS: >45 mL/min Normal 70-79 YRS: >39 mL/min Normal 80 and above >32 mL/min NormalNORMAL RANGES Age WBC RBC HGB HCT MCV PLT Adult M 4.1-10.9 4.20-6.30 12.0-18.0 37.0-51.0 80-97 140-440 Adult F 4.1-10.9 4.04-5.48 12.0-18.0 37.0-51.0 80-97 140-440 0- 1 Yr 5.0-20.0 3.9-5.9 15-18 MV: 44 MV: 91 MV: 277 2-9 Yr. 6.0-17.0 3.8-5.4 11-13 MV: 37 MV: 78 MV: 300 10 Yrs. 5.0-13.0 3.8-5.4 12-15 MV: 39 MV: 80 MV: 250 NOTE: * FOR ADULT BLACK MALES AND FEMALES, NORMAL WBC IS 2.9-7.7 K/ML * FOR ADULT BLACK MALES AND FEMALES, NORMAL RBC,HGB, AND HCT IS 5% LESS SOURCE FOR DATA: Runteq 1800 OPERATION MANUAL( AUTOMATED BLOOD COUNTS AND DIFF.) APPENDIX B-3 HGB 12.5 g/dL 12.0-18.0 [facility] CHRONIC KIDNEY DISEASE STAGING PER NKF: MALE GFR INTERPRETATION: 20-49 YRS: >60 mL/min Normal 50-59 YRS: >56 mL/min Normal 60-69 YRS: >49 mL/min Normal 70-79 YRS: >42 mL/min Normal 80 and above >35 mL/min Normal FEMALE GRF INTERPRETATION: 20-39 YRS: >60 mL/min Normal 40-49 YRS: >58 mL/min Normal 50-59 YRS: >51 mL/min Normal 60-69 YRS: >45 mL/min Normal 70-79 YRS: >39 mL/min Normal 80 and above >32 mL/min NormalNORMAL RANGES Age WBC RBC HGB HCT MCV PLT Adult M 4.1-10.9 4.20-6.30 12.0-18.0 37.0-51.0 80-97 140-440 Adult F 4.1-10.9 4.04-5.48 12.0-18.0 37.0-51.0 80-97 140-440 0- 1 Yr 5.0-20.0 3.9-5.9 15-18 MV: 44 MV: 91 MV: 277 2-9 Yr. 6.0-17.0 3.8-5.4 11-13 MV: 37 MV: 78 MV: 300 10 Yrs. 5.0-13.0 3.8-5.4 12-15 MV: 39 MV: 80 MV: 250 NOTE: * FOR ADULT BLACK MALES AND FEMALES, NORMAL WBC IS 2.9-7.7 K/ML * FOR ADULT BLACK MALES AND FEMALES, NORMAL RBC,HGB, AND HCT IS 5% LESS SOURCE FOR DATA: PhotoShelter DYN 1800 OPERATION MANUAL( AUTOMATED BLOOD COUNTS AND DIFF.) APPENDIX B-3 HCT 39.0 % 37.0-51.0 [facility] CHRONIC KIDNEY DISEASE STAGING PER NKF: MALE GFR INTERPRETATION: 20-49 YRS: >60 mL/min Normal 50-59 YRS: >56 mL/min Normal 60-69 YRS: >49 mL/min Normal 70-79 YRS: >42 mL/min Normal 80 and above >35 mL/min Normal FEMALE GRF INTERPRETATION: 20-39 YRS: >60 mL/min Normal 40-49 YRS: >58 mL/min Normal 50-59 YRS: >51 mL/min Normal 60-69 YRS: >45 mL/min Normal 70-79 YRS: >39 mL/min Normal 80 and above >32 mL/min NormalNORMAL RANGES Age WBC RBC HGB HCT MCV PLT Adult M 4.1-10.9 4.20-6.30 12.0-18.0 37.0-51.0 80-97 140-440 Adult F 4.1-10.9 4.04-5.48 12.0-18.0 37.0-51.0 80-97 140-440 0- 1 Yr 5.0-20.0 3.9-5.9 15-18 MV: 44 MV: 91 MV: 277 2-9 Yr. 6.0-17.0 3.8-5.4 11-13 MV: 37 MV: 78 MV: 300 10 Yrs. 5.0-13.0 3.8-5.4 12-15 MV: 39 MV: 80 MV: 250 NOTE: * FOR ADULT BLACK MALES AND FEMALES, NORMAL WBC IS 2.9-7.7 K/ML * FOR ADULT BLACK MALES AND FEMALES, NORMAL RBC,HGB, AND HCT IS 5% LESS SOURCE FOR DATA: Runteq 1800 OPERATION MANUAL( AUTOMATED BLOOD COUNTS AND DIFF.) APPENDIX B-3 MCV 80.2 fL 80.0-97.0 [facility] CHRONIC KIDNEY DISEASE STAGING PER NKF: MALE GFR INTERPRETATION: 20-49 YRS: >60 mL/min Normal 50-59 YRS: >56 mL/min Normal 60-69 YRS: >49 mL/min Normal 70-79 YRS: >42 mL/min Normal 80 and above >35 mL/min Normal FEMALE GRF INTERPRETATION: 20-39 YRS: >60 mL/min Normal 40-49 YRS: >58 mL/min Normal 50-59 YRS: >51 mL/min Normal 60-69 YRS: >45 mL/min Normal 70-79 YRS: >39 mL/min Normal 80 and above >32 mL/min NormalNORMAL RANGES Age WBC RBC HGB HCT MCV PLT Adult M 4.1-10.9 4.20-6.30 12.0-18.0 37.0-51.0 80-97 140-440 Adult F 4.1-10.9 4.04-5.48 12.0-18.0 37.0-51.0 80-97 140-440 0- 1 Yr 5.0-20.0 3.9-5.9 15-18 MV: 44 MV: 91 MV: 277 2-9 Yr. 6.0-17.0 3.8-5.4 11-13 MV: 37 MV: 78 MV: 300 10 Yrs. 5.0-13.0 3.8-5.4 12-15 MV: 39 MV: 80 MV: 250 NOTE: * FOR ADULT BLACK MALES AND FEMALES, NORMAL WBC IS 2.9-7.7 K/ML * FOR ADULT BLACK MALES AND FEMALES, NORMAL RBC,HGB, AND HCT IS 5% LESS SOURCE FOR DATA: ANNIKA DYN 1800 OPERATION MANUAL( AUTOMATED BLOOD COUNTS AND DIFF.) APPENDIX B-3 MCH 25.7 pg 26.0-32.0 Below low normal [facility] ( [facility] CHRONIC KIDNEY DISEASE STAGING PER NKF: MALE GFR INTERPRETATION: 20-49 YRS: >60 mL/min Normal 50-59 YRS: >56 mL/min Normal 60-69 YRS: >49 mL/min Normal 70-79 YRS: >42 mL/min Normal 80 and above >35 mL/min Normal FEMALE GRF INTERPRETATION: 20-39 YRS: >60 mL/min Normal 40-49 YRS: >58 mL/min Normal 50-59 YRS: >51 mL/min Normal 60-69 YRS: >45 mL/min Normal 70-79 YRS: >39 mL/min Normal 80 and above >32 mL/min NormalNORMAL RANGES Age WBC RBC HGB HCT MCV PLT Adult M 4.1-10.9 4.20-6.30 12.0-18.0 37.0-51.0 80-97 140-440 Adult F 4.1-10.9 4.04-5.48 12.0-18.0 37.0-51.0 80-97 140-440 0- 1 Yr 5.0-20.0 3.9-5.9 15-18 MV: 44 MV: 91 MV: 277 2-9 Yr. 6.0-17.0 3.8-5.4 11-13 MV: 37 MV: 78 MV: 300 10 Yrs. 5.0-13.0 3.8-5.4 12-15 MV: 39 MV: 80 MV: 250 NOTE: * FOR ADULT BLACK MALES AND FEMALES, NORMAL WBC IS 2.9-7.7 K/ML * FOR ADULT BLACK MALES AND FEMALES, NORMAL RBC,HGB, AND HCT IS 5% LESS SOURCE FOR DATA: ANNIKA DYN 1800 OPERATION MANUAL( AUTOMATED BLOOD COUNTS AND DIFF.) APPENDIX B-3 MCHC 32.1 g/dL 31.0-36.0 [facility] ([facility] CHRONIC KIDNEY DISEASE STAGING PER NKF: MALE GFR INTERPRETATION: 20-49 YRS: >60 mL/min Normal 50-59 YRS: >56 mL/min Normal 60-69 YRS: >49 mL/min Normal 70-79 YRS: >42 mL/min Normal 80 and above >35 mL/min Normal FEMALE GRF INTERPRETATION: 20-39 YRS: >60 mL/min Normal 40-49 YRS: >58 mL/min Normal 50-59 YRS: >51 mL/min Normal 60-69 YRS: >45 mL/min Normal 70-79 YRS: >39 mL/min Normal 80 and above >32 mL/min NormalNORMAL RANGES Age WBC RBC HGB HCT MCV PLT Adult M 4.1-10.9 4.20-6.30 12.0-18.0 37.0-51.0 80-97 140-440 Adult F 4.1-10.9 4.04-5.48 12.0-18.0 37.0-51.0 80-97 140-440 0- 1 Yr 5.0-20.0 3.9-5.9 15-18 MV: 44 MV: 91 MV: 277 2-9 Yr. 6.0-17.0 3.8-5.4 11-13 MV: 37 MV: 78 MV: 300 10 Yrs. 5.0-13.0 3.8-5.4 12-15 MV: 39 MV: 80 MV: 250 NOTE: * FOR ADULT BLACK MALES AND FEMALES, NORMAL WBC IS 2.9-7.7 K/ML * FOR ADULT BLACK MALES AND FEMALES, NORMAL RBC,HGB, AND HCT IS 5% LESS SOURCE FOR DATA: ANNIKA DYN 1800 OPERATION MANUAL( AUTOMATED BLOOD COUNTS AND DIFF.) APPENDIX B-3 PLT 345 10E3/uL 140-440 [facility] CHRONIC KIDNEY DISEASE STAGING PER NKF: MALE GFR INTERPRETATION: 20-49 YRS: >60 mL/min Normal 50-59 YRS: >56 mL/min Normal 60-69 YRS: >49 mL/min Normal 70-79 YRS: >42 mL/min Normal 80 and above >35 mL/min Normal FEMALE GRF INTERPRETATION: 20-39 YRS: >60 mL/min Normal 40-49 YRS: >58 mL/min Normal 50-59 YRS: >51 mL/min Normal 60-69 YRS: >45 mL/min Normal 70-79 YRS: >39 mL/min Normal 80 and above >32 mL/min NormalNORMAL RANGES Age WBC RBC HGB HCT MCV PLT Adult M 4.1-10.9 4.20-6.30 12.0-18.0 37.0-51.0 80-97 140-440 Adult F 4.1-10.9 4.04-5.48 12.0-18.0 37.0-51.0 80-97 140-440 0- 1 Yr 5.0-20.0 3.9-5.9 15-18 MV: 44 MV: 91 MV: 277 2-9 Yr. 6.0-17.0 3.8-5.4 11-13 MV: 37 MV: 78 MV: 300 10 Yrs. 5.0-13.0 3.8-5.4 12-15 MV: 39 MV: 80 MV: 250 NOTE: * FOR ADULT BLACK MALES AND FEMALES, NORMAL WBC IS 2.9-7.7 K/ML * FOR ADULT BLACK MALES AND FEMALES, NORMAL RBC,HGB, AND HCT IS 5% LESS SOURCE FOR DATA: ANNIKA DYN 1800 OPERATION MANUAL( AUTOMATED BLOOD COUNTS AND DIFF.) APPENDIX B-3 RDW-CV 14.1 % 11.5-14.5 [facility] CHRONIC KIDNEY DISEASE STAGING PER NKF: MALE GFR INTERPRETATION: 20-49 YRS: >60 mL/min Normal 50-59 YRS: >56 mL/min Normal 60-69 YRS: >49 mL/min Normal 70-79 YRS: >42 mL/min Normal 80 and above >35 mL/min Normal FEMALE GRF INTERPRETATION: 20-39 YRS: >60 mL/min Normal 40-49 YRS: >58 mL/min Normal 50-59 YRS: >51 mL/min Normal 60-69 YRS: >45 mL/min Normal 70-79 YRS: >39 mL/min Normal 80 and above >32 mL/min NormalNORMAL RANGES Age WBC RBC HGB HCT MCV PLT Adult M 4.1-10.9 4.20-6.30 12.0-18.0 37.0-51.0 80-97 140-440 Adult F 4.1-10.9 4.04-5.48 12.0-18.0 37.0-51.0 80-97 140-440 0- 1 Yr 5.0-20.0 3.9-5.9 15-18 MV: 44 MV: 91 MV: 277 2-9 Yr. 6.0-17.0 3.8-5.4 11-13 MV: 37 MV: 78 MV: 300 10 Yrs. 5.0-13.0 3.8-5.4 12-15 MV: 39 MV: 80 MV: 250 NOTE: * FOR ADULT BLACK MALES AND FEMALES, NORMAL WBC IS 2.9-7.7 K/ML * FOR ADULT BLACK MALES AND FEMALES, NORMAL RBC,HGB, AND HCT IS 5% LESS SOURCE FOR DATA: ANNIKA DYN 1800 OPERATION MANUAL( AUTOMATED BLOOD COUNTS AND DIFF.) APPENDIX B-3 Neut% 70.0 % 37.0-92.0 [facility] CHRONIC KIDNEY DISEASE STAGING PER NKF: MALE GFR INTERPRETATION: 20-49 YRS: >60 mL/min Normal 50-59 YRS: >56 mL/min Normal 60-69 YRS: >49 mL/min Normal 70-79 YRS: >42 mL/min Normal 80 and above >35 mL/min Normal FEMALE GRF INTERPRETATION: 20-39 YRS: >60 mL/min Normal 40-49 YRS: >58 mL/min Normal 50-59 YRS: >51 mL/min Normal 60-69 YRS: >45 mL/min Normal 70-79 YRS: >39 mL/min Normal 80 and above >32 mL/min NormalNORMAL RANGES Age WBC RBC HGB HCT MCV PLT Adult M 4.1-10.9 4.20-6.30 12.0-18.0 37.0-51.0 80-97 140-440 Adult F 4.1-10.9 4.04-5.48 12.0-18.0 37.0-51.0 80-97 140-440 0- 1 Yr 5.0-20.0 3.9-5.9 15-18 MV: 44 MV: 91 MV: 277 2-9 Yr. 6.0-17.0 3.8-5.4 11-13 MV: 37 MV: 78 MV: 300 10 Yrs. 5.0-13.0 3.8-5.4 12-15 MV: 39 MV: 80 MV: 250 NOTE: * FOR ADULT BLACK MALES AND FEMALES, NORMAL WBC IS 2.9-7.7 K/ML * FOR ADULT BLACK MALES AND FEMALES, NORMAL RBC,HGB, AND HCT IS 5% LESS SOURCE FOR DATA: Runteq 1800 OPERATION MANUAL( AUTOMATED BLOOD COUNTS AND DIFF.) APPENDIX B-3 MXD% 9.1 % 0.1-24.0 [facility] CHRONIC KIDNEY DISEASE STAGING PER NKF: MALE GFR INTERPRETATION: 20-49 YRS: >60 mL/min Normal 50-59 YRS: >56 mL/min Normal 60-69 YRS: >49 mL/min Normal 70-79 YRS: >42 mL/min Normal 80 and above >35 mL/min Normal FEMALE GRF INTERPRETATION: 20-39 YRS: >60 mL/min Normal 40-49 YRS: >58 mL/min Normal 50-59 YRS: >51 mL/min Normal 60-69 YRS: >45 mL/min Normal 70-79 YRS: >39 mL/min Normal 80 and above >32 mL/min NormalNORMAL RANGES Age WBC RBC HGB HCT MCV PLT Adult M 4.1-10.9 4.20-6.30 12.0-18.0 37.0-51.0 80-97 140-440 Adult F 4.1-10.9 4.04-5.48 12.0-18.0 37.0-51.0 80-97 140-440 0- 1 Yr 5.0-20.0 3.9-5.9 15-18 MV: 44 MV: 91 MV: 277 2-9 Yr. 6.0-17.0 3.8-5.4 11-13 MV: 37 MV: 78 MV: 300 10 Yrs. 5.0-13.0 3.8-5.4 12-15 MV: 39 MV: 80 MV: 250 NOTE: * FOR ADULT BLACK MALES AND FEMALES, NORMAL WBC IS 2.9-7.7 K/ML * FOR ADULT BLACK MALES AND FEMALES, NORMAL RBC,HGB, AND HCT IS 5% LESS SOURCE FOR DATA: [employer] 1800 OPERATION MANUAL( AUTOMATED BLOOD COUNTS AND DIFF.) APPENDIX B-3 Lym% 20.9 % 10.0-58.5 [facility] ([facility] CHRONIC KIDNEY DISEASE STAGING PER NKF: MALE GFR INTERPRETATION: 20-49 YRS: >60 mL/min Normal 50-59 YRS: >56 mL/min Normal 60-69 YRS: >49 mL/min Normal 70-79 YRS: >42 mL/min Normal 80 and above >35 mL/min Normal FEMALE GRF INTERPRETATION: 20-39 YRS: >60 mL/min Normal 40-49 YRS: >58 mL/min Normal 50-59 YRS: >51 mL/min Normal 60-69 YRS: >45 mL/min Normal 70-79 YRS: >39 mL/min Normal 80 and above >32 mL/min NormalNORMAL RANGES Age WBC RBC HGB HCT MCV PLT Adult M 4.1-10.9 4.20-6.30 12.0-18.0 37.0-51.0 80-97 140-440 Adult F 4.1-10.9 4.04-5.48 12.0-18.0 37.0-51.0 80-97 140-440 0- 1 Yr 5.0-20.0 3.9-5.9 15-18 MV: 44 MV: 91 MV: 277 2-9 Yr. 6.0-17.0 3.8-5.4 11-13 MV: 37 MV: 78 MV: 300 10 Yrs. 5.0-13.0 3.8-5.4 12-15 MV: 39 MV: 80 MV: 250 NOTE: * FOR ADULT BLACK MALES AND FEMALES, NORMAL WBC IS 2.9-7.7 K/ML * FOR ADULT BLACK MALES AND FEMALES, NORMAL RBC,HGB, AND HCT IS 5% LESS SOURCE FOR DATA: [employer] 1800 OPERATION MANUAL( AUTOMATED BLOOD COUNTS AND DIFF.) APPENDIX B-3 Lym# 1.5 10E3/uL 0.6-4.1 [facility] ([facility] CHRONIC KIDNEY DISEASE STAGING PER NKF: MALE GFR INTERPRETATION: 20-49 YRS: >60 mL/min Normal 50-59 YRS: >56 mL/min Normal 60-69 YRS: >49 mL/min Normal 70-79 YRS: >42 mL/min Normal 80 and above >35 mL/min Normal FEMALE GRF INTERPRETATION: 20-39 YRS: >60 mL/min Normal 40-49 YRS: >58 mL/min Normal 50-59 YRS: >51 mL/min Normal 60-69 YRS: >45 mL/min Normal 70-79 YRS: >39 mL/min Normal 80 and above >32 mL/min NormalNORMAL RANGES Age WBC RBC HGB HCT MCV PLT Adult M 4.1-10.9 4.20-6.30 12.0-18.0 37.0-51.0 80-97 140-440 Adult F 4.1-10.9 4.04-5.48 12.0-18.0 37.0-51.0 80-97 140-440 0- 1 Yr 5.0-20.0 3.9-5.9 15-18 MV: 44 MV: 91 MV: 277 2-9 Yr. 6.0-17.0 3.8-5.4 11-13 MV: 37 MV: 78 MV: 300 10 Yrs. 5.0-13.0 3.8-5.4 12-15 MV: 39 MV: 80 MV: 250 NOTE: * FOR ADULT BLACK MALES AND FEMALES, NORMAL WBC IS 2.9-7.7 K/ML * FOR ADULT BLACK MALES AND FEMALES, NORMAL RBC,HGB, AND HCT IS 5% LESS SOURCE FOR DATA: [employer] 1800 OPERATION MANUAL( AUTOMATED BLOOD COUNTS AND DIFF.) APPENDIX B-3 Neut# 5.0 % 2.0-7.8 [facility] ([facility] CHRONIC KIDNEY DISEASE STAGING PER NKF: MALE GFR INTERPRETATION: 20-49 YRS: >60 mL/min Normal 50-59 YRS: >56 mL/min Normal 60-69 YRS: >49 mL/min Normal 70-79 YRS: >42 mL/min Normal 80 and above >35 mL/min Normal FEMALE GRF INTERPRETATION: 20-39 YRS: >60 mL/min Normal 40-49 YRS: >58 mL/min Normal 50-59 YRS: >51 mL/min Normal 60-69 YRS: >45 mL/min Normal 70-79 YRS: >39 mL/min Normal 80 and above >32 mL/min NormalNORMAL RANGES Age WBC RBC HGB HCT MCV PLT Adult M 4.1-10.9 4.20-6.30 12.0-18.0 37.0-51.0 80-97 140-440 Adult F 4.1-10.9 4.04-5.48 12.0-18.0 37.0-51.0 80-97 140-440 0- 1 Yr 5.0-20.0 3.9-5.9 15-18 MV: 44 MV: 91 MV: 277 2-9 Yr. 6.0-17.0 3.8-5.4 11-13 MV: 37 MV: 78 MV: 300 10 Yrs. 5.0-13.0 3.8-5.4 12-15 MV: 39 MV: 80 MV: 250 NOTE: * FOR ADULT BLACK MALES AND FEMALES, NORMAL WBC IS 2.9-7.7 K/ML * FOR ADULT BLACK MALES AND FEMALES, NORMAL RBC,HGB, AND HCT IS 5% LESS SOURCE FOR DATA: [employer]YN 1800 OPERATION MANUAL( AUTOMATED BLOOD COUNTS AND DIFF.) APPENDIX B-3 MXD# 0.7 10E3/uL 0.0-1.8 [facility] ([facility] CHRONIC KIDNEY DISEASE STAGING PER NKF: MALE GFR INTERPRETATION: 20-49 YRS: >60 mL/min Normal 50-59 YRS: >56 mL/min Normal 60-69 YRS: >49 mL/min Normal 70-79 YRS: >42 mL/min Normal 80 and above >35 mL/min Normal FEMALE GRF INTERPRETATION: 20-39 YRS: >60 mL/min Normal 40-49 YRS: >58 mL/min Normal 50-59 YRS: >51 mL/min Normal 60-69 YRS: >45 mL/min Normal 70-79 YRS: >39 mL/min Normal 80 and above >32 mL/min NormalNORMAL RANGES Age WBC RBC HGB HCT MCV PLT Adult M 4.1-10.9 4.20-6.30 12.0-18.0 37.0-51.0 80-97 140-440 Adult F 4.1-10.9 4.04-5.48 12.0-18.0 37.0-51.0 80-97 140-440 0- 1 Yr 5.0-20.0 3.9-5.9 15-18 MV: 44 MV: 91 MV: 277 2-9 Yr. 6.0-17.0 3.8-5.4 11-13 MV: 37 MV: 78 MV: 300 10 Yrs. 5.0-13.0 3.8-5.4 12-15 MV: 39 MV: 80 MV: 250 NOTE: * FOR ADULT BLACK MALES AND FEMALES, NORMAL WBC IS 2.9-7.7 K/ML * FOR ADULT BLACK MALES AND FEMALES, NORMAL RBC,HGB, AND HCT IS 5% LESS SOURCE FOR DATA: [employer] DYN 1800 OPERATION MANUAL( AUTOMATED BLOOD COUNTS AND DIFF.) APPENDIX B-3 MPV 8.1 fL 9.0-13.0 Below low normal [facility] ( [facility] CHRONIC KIDNEY DISEASE STAGING PER NKF: MALE GFR INTERPRETATION: 20-49 YRS: >60 mL/min Normal 50-59 YRS: >56 mL/min Normal 60-69 YRS: >49 mL/min Normal 70-79 YRS: >42 mL/min Normal 80 and above >35 mL/min Normal FEMALE GRF INTERPRETATION: 20-39 YRS: >60 mL/min Normal 40-49 YRS: >58 mL/min Normal 50-59 YRS: >51 mL/min Normal 60-69 YRS: >45 mL/min Normal 70-79 YRS: >39 mL/min Normal 80 and above >32 mL/min NormalNORMAL RANGES Age WBC RBC HGB HCT MCV PLT Adult M 4.1-10.9 4.20-6.30 12.0-18.0 37.0-51.0 80-97 140-440 Adult F 4.1-10.9 4.04-5.48 12.0-18.0 37.0-51.0 80-97 140-440 0- 1 Yr 5.0-20.0 3.9-5.9 15-18 MV: 44 MV: 91 MV: 277 2-9 Yr. 6.0-17.0 3.8-5.4 11-13 MV: 37 MV: 78 MV: 300 10 Yrs. 5.0-13.0 3.8-5.4 12-15 MV: 39 MV: 80 MV: 250 NOTE: * FOR ADULT BLACK MALES AND FEMALES, NORMAL WBC IS 2.9-7.7 K/ML * FOR ADULT BLACK MALES AND FEMALES, NORMAL RBC,HGB, AND HCT IS 5% LESS SOURCE FOR DATA: [employer] 1800 OPERATION MANUAL( AUTOMATED BLOOD COUNTS AND DIFF.) APPENDIX B-3 Procedure Vital Signs ID Date Data Source UNK Name Value Range Interpretation Code Description Data Source(s) Oxygen saturation in Arterial blood by Pulse oximetry 99 % 99 % [facility] ([facility] Body mass index (BMI) [Ratio] 29.1 kg/m2 29.1 k g/m2 [facility] ([facility] Body weight 197.00 [lb_av] 197.00 [lb_av] [facility] ([facility] Body height 69 [in_i] 69 [in_i] [facility] ([facility] 5'9" Respiratory rate 18 /min 18 /min [facility] ( [facility] Heart rate 88 /min 88 /min [facility] ([facility] Body temperature 98.5 [degF] 98.5 [degF] [facility] ([facility] Diastolic blood pressure 68 mm[Hg] 68 mm[Hg] [facility] ([facility] Systolic blood pressure 102 mm[Hg] 102 mm[Hg] M [facility] ([facility] Oxygen saturation in Arterial blood by Pulse oximetry 97 % 97 % [facility] ([facility] Body mass index (BMI) [Ratio] 28.9 kg/m2 28.9 k g/m2 [facility] ([facility] Body weight 196.00 [lb_av] 196.00 [lb_av] [facility] T ([facility] Body height 69 [in_i] 69 [in_i] [facility] ([facility] 5'9" Respiratory rate 18 /min 18 /min [facility] ( [facility] Heart rate 94 /min 94 /min [facility] ([facility] Body temperature 98.5 [degF] 98.5 [degF] [facility] ([facility] Diastolic blood pressure 76 mm[Hg] 76 mm[Hg] [facility] ([facility] Systolic blood pressure 106 mm[Hg] 106 mm[Hg] M [facility] ([facility] Body mass index (BMI) [Ratio] 28.4 kg/m2 28.4 k g/m2 [facility] ([facility], [facility]) Body height 69 [in_i] 69 [in_i] [facility] ([facility], [facility]) 5'9" Body weight 192.00 [lb_av] 192.00 [lb_av] [facility] T ([facility], [facility]) Body temperature 98.8 [degF] 98.8 [degF] [facility] ([facility], [facility]) Oxygen saturation in Arterial blood by Pulse oximetry 98 % 98 % [facility] ([facility], [facility]) Respiratory rate 18 /min 18 /min [facility] ( [facility], [facility]) Heart rate 85 /min 85 /min [facility] ([facility], [facility]) Diastolic blood pressure 72 mm[Hg] 72 mm[Hg] [facility] ([facility], [facility]) Systolic blood pressure 106 mm[Hg] 106 mm[Hg] M [facility] ([facility], [facility]) Oxygen saturation in Arterial blood by Pulse oximetry 98 % 98 % [facility] ([facility] Body mass index (BMI) [Ratio] 29.5 kg/m2 29.5 k g/m2 [facility] ([facility] Body weight 200.00 [lb_av] 200.00 [lb_av] [facility] ([facility] Body height 69 [in_i] 69 [in_i] [facility] ([facility] 5'9" Respiratory rate 16 /min 16 /min [facility] ( [facility] Heart rate 83 /min 83 /min [facility] ([facility] Body temperature 98.2 [degF] 98.2 [degF] [facility] ([facility] Diastolic blood pressure 80 mm[Hg] 80 mm[Hg] [facility] ([facility] Systolic blood pressure 124 mm[Hg] 124 mm[Hg] M [facility] ([facility]
[2020-09-17] MEDS ORDERED: MULT1TAB7 PO (11:17)
[2020-09-17] MEDS ORDERED: ZINC1TAB2 PO (11:17)
[2020-09-17] MEDS ORDERED: D-40TAB2 PO (11:17)
[2020-09-17 12:26] LABS: BASO % 0.3 % (0.0-1.0); EOS # 0.2 10^3/uL (0.0-0.5); EOS % 1.3 % (0.0-3.0); HEMATOCRIT 36.3 % (42.0-52.0); HEMOGLOBIN 10.6 g/dl (13.5-17.5); LYMPH % 8.8 % (24.0-44.0); MEAN CORPUSCULAR HEMOGLOBIN 21.8 pg (27.0-33.0); MEAN CORPUSCULAR HGB CONC 29.2 g/dl (32.0-36.5); MEAN CORPUSCULAR VOLUME 74.5 fl (80.0-96.0); MONO # 0.8 10^3/uL (0.0-0.8); NEUTROPHILS # 9.6 10^3/uL (1.5-8.5); NEUTROPHILS % 82.3 % (36.0-66.0); PLATELET COUNT, AUTOMATED 362 10^3/uL (150-450); RED BLOOD COUNT 4.87 10^6/uL (4.30-6.10); WHITE BLOOD COUNT 11.7 10^3/uL (4.0-10.0)
--- NOTE | 2020-09-17 12:33 | REP ---
INDICATION: umbilical hernia, acute and painful. COMPARISON: None. TECHNIQUE: Real-time sonographic evaluation of anterior abdominal wall performed. FINDINGS: There is an umbilical hernia present with the abdominal wall defect measuring approximately 1.5 cm in diameter. This is seen at rest and with Valsalva maneuver. The hernia sac contains bowel, the bowel does not demonstrate peristalsis. There hernia is not reducible. IMPRESSION: Non reducible umbilical hernia containing bowel. The bowel does not demonstrate peristalsis. <Electronically signed by Kishan Monreal > 09/17/20 [id number]
--- OUTSIDE RECORDS SUMMARY | 2020-09-17 12:40 | CCD ---
Author Author [facility] Organization [facility] Address Unknown Phone Unavailable Care Team Providers Care Surgeon'S Assistant Name Role Phone Barraclough, Alethea PA Unavailable Unavailable Barraclough, Alethea PA Unavailable Unavailable Barraclough, Alethea PA Unavailable Unavailable Barraclough, Alethea PA Unavailable Unavailable Barraclough, Alethea PA Unavailable Unavailable Barraclough, Alethea PA Unavailable Unavailable Jalen Robertson MD Unavailable Unavailable Jalen Robertson MD Unavailable Unavailable Jalen Robertson MD Unavailable Unavailable Jalen Robertson MD Unavailable Unavailable Jalen Robertson MD Unavailable Unavailable Jalen Robertson MD Unavailable Unavailable Jaeln Robertson MD Unavailable Unavailable Jalen Robertson MD [...] Unavailable Unavailable Jalen Robertson MD Unavailable Unavailable Jaeln Robertson MD Unavailable Unavailable Jalen Robertson MD [...] is protected by Article 27-F of the [facility] Public Health law. If you continue you may have access to information: Regarding HIV / AIDS; Provided by facilities licensed or operated by the [facility] Office of Mental Health; or Provided by the [facility] Office for People With Developmental Disabilities. If such information is present, then the following [facility] mandated warning applies: This information has been [...] law may result in a fine or chcf sentence or both. A general authorization for [...] Attender: Martínez FRANCOIS 02/10/2020 07:52:24 PM EDT [facility] Outpatient Attender: Alethea MIN [place] Rakesh ce 01/20/2020 10:00:00 AM EDT [facility] Outpatient Attender: Alethea MIN [place] Offi ce 11/25/2019 10:20:00 AM EDT [facility] ([facility] Outpatient Attender: MARIZOL Navarro 11/06/2019 03:15:00 PM EST [facility] ([facility]) Outpatient Attender: Alethea MIN [place] Rakesh ce 09/05/2019 08:15:00 AM EST [facility] ([facility] Medications Medication Brand Name Start Date Product Form Dose Route Admi nistrative Instructions Pharmacy Instructions Status Indications Reaction Description Data Source(s) 12 HR Bupropion Hydrochloride 200 MG Extended Release Oral Tablet [Wellbutrin] Wellbutrin SR 11/25/2019 12:00:00 AM EDT ORAL active [facility] ([facility] montelukast 10 MG Oral Tablet Montelukast Sodium 11/25/2019 12:00:00 AM EDT active [facility] ([facility] Azelastine HCL (Nasal) Azelastine HCL (Nasal) 11/25/2019 12:00:00 AM E DT active [facility] ([facility] tramadol hydrochloride 50 MG Oral Tablet Tramadol HCL 11/06/2019 12:00:00 AM EST ORAL active [facility] ([facility]) 50 mg 11/06/2019 12:00:00 AM EST tablet 6 TAKE ONE TABLET BY MOUTH EVERY 12 HOURS NEEDED FOR PAIN MAXIMUM DAILY DOSE = 2 TAKE ONE TABLET BY MOUTH EVERY 12 HOURS NEEDED FOR PAIN MAXIMUM DAILY DOSE = 2 SOLD: 11/06/2019 [facility] Hydroxyzine Hydrochloride 25 MG Oral Tablet Hydroxyzine HCL 09/05/2019 12:00:00 AM EST ORAL active [facility] ([facility] 12 HR Bupropion Hydrochloride 150 MG Extended Release Oral Tablet [Wellbutrin] Wellbutrin SR 09/05/2019 12:00:00 AM EST ORAL completed [facility] ([facility] Lactobacillus acidophilus [id number] UNT Oral Capsule Probiot ic Acidophilus 09/05/2019 12:00:00 AM EST ORAL active [facility] ([facility] Turmeric 09/05/2019 12:00:00 AM EST active [facility] ([facility] Insurance Providers Payer name Policy type / Coverage type Policy ID Covered constitution party ID Covered constitution party's relationship to carter Policy Carter Plan Information [employer] [id number] SP [id number] [facility] [id number] SP [id number] [facility] Commercial [id number] Self [id number] [facility] Commercial [id number] Self [id number] [facility] [id number] SP [id number] [facility] COMMUNITY PLAN MCDO [id number] SP [id number] [employer]) Workers Compensation [id number] Self [id number] [employer] O [id number] S [id number] [employer] Workers Compensation [id number] Self [id number] [place] SP [facility] Health Maintenance Organization (HMO) [id number] Self [id number] [facility] O [id number] S [id number] [employer] O [id number] S [id number] [employer] [id number] SP [id number] [employer] [id number] SP [id number] [facility](MCA[facility]) O [id number] S [id number] [facility] O [id number] S [id number] MEDICAID [facility] [id number] SP [id number] [id number] [facility] COMMUNITY PLAN [id number] SP [id number] [employer] Commercial [id number] Self [id number] YAMIL [id number] SP [id number] [facility] Other Self Problems, Conditions, and Diagnoses Code Display Name Description Problem Type Effective Dates Data Source(s) [id number] Seasonal allergic rhinitis Seasonal allergic rhinitis Problem 11/25/2019 12:00:00 AM EDT [facility] (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 Problem 09/05/2019 12:00:00 AM EST [facility] ([facility] Surgeries/Procedures Procedure Description Date Indications Data Source(s) Electrocardiogram Complete 09/05/2019 12:00:00 AM EST [facility] ([facility] Results ID Date Data Source [id number] 09/05/2019 10:40:00 AM EST [facility] ([facility] Name Value Range Interpretation Code Description Data Arlette rce(s) Supporting Document(s) Specific [place] Laboratory test result 1.00-1.03 [facility] ([facility] Color Urine Laboratory test result M EDENT ([facility] Appearance of Urine Laboratory test result [facility] ([facility] Bilirubin.total [Presence] in Urine by Test strip Laboratory test res ult [facility] ([facility] Glucose Urine Laboratory test result [facility] ([facility] PH Urine 5.5 5.0-8.0 [facility] ([facility] Protein Urine Laboratory test result [facility] ([facility] Ketones Laboratory test result [facility] ([facility] Blood Urine Laboratory test result M EDENT ([facility] Nitrite Laboratory test result [facility] ([facility] Urobilinogen 0.2 EU/dl 0.2-1.0 [facility] ([facility] Leukocytes Laboratory test result ME DENT ([facility] ID Date Data Source [id number] 09/05/2019 10:40:00 AM EST [facility] ([facility] Name Value Range Interpretation Code Description Data Arlette rce(s) Supporting Document(s) Glu 81 mg/dL 70-110 [facility] CHRONIC KIDNEY DISEASE [...] HCT IS 5% LESS SOURCE FOR DATA: [employer] 1800 OPERATION MANUAL( AUTOMATED BLOOD COUNTS AND DIFF.) APPENDIX B-3 BUN/Creatinine Ratio 13.8 Calc [facility] ([facility] CHRONIC KIDNEY DISEASE STAGING [...] DIFF.) APPENDIX B-3 Creat 0.9 mg/dL 0.7-1.2 [facility] ([facility] CHRONIC KIDNEY DISEASE STAGING PER [...] DIFF.) APPENDIX B-3 BUN 12 mg/dL 04-25 [facility] ([facility] CHRONIC KIDNEY DISEASE STAGING PER [...] 140-440 Adult F 4.1-10.9 4.04-5.48 12.0-18.0 37.0-51.0 80- 140-440 0- 1 Yr 5.0-20.0 3.9-5.9 15-18 [...] HCT IS 5% LESS SOURCE FOR DATA: [employer] 1800 OPERATION MANUAL( AUTOMATED BLOOD COUNTS AND DIFF.) APPENDIX B-3 Na 138 mmol/L 136-145 [facility] ([facility] CHRONIC KIDNEY DISEASE STAGING PER [...] HCT IS 5% LESS SOURCE FOR DATA: [employer] 1800 OPERATION MANUAL( AUTOMATED BLOOD COUNTS AND DIFF.) APPENDIX B-3 K 4.3 mmol/L 3.5-5.1 [facility] ([facility] CHRONIC KIDNEY DISEASE STAGING PER [...] HCT IS 5% LESS SOURCE FOR DATA: [employer] DYN 1800 OPERATION MANUAL( AUTOMATED BLOOD COUNTS AND DIFF.) APPENDIX B-3 CL 102.6 mmol/L 98.0-107.0 [facility] ([facility] CHRONIC KIDNEY DISEASE [...] HCT IS 5% LESS SOURCE FOR DATA: [employer] 1800 OPERATION MANUAL( AUTOMATED BLOOD COUNTS AND DIFF.) APPENDIX B-3 CA 9.3 mg/dL 8.6-10.2 [facility] CHRONIC KIDNEY DISEASE [...] DIFF.) APPENDIX B-3 Co2 27.3 mmol/L 22.0-29.0 [facility] ([facility] CHRONIC KIDNEY DISEASE STAGING PER [...] DIFF.) APPENDIX B-3 Alb 4.3 g/dL 3.5-5.2 [facility] CHRONIC KIDNEY DISEASE [...] DIFF.) APPENDIX B-3 A/G Ratio 2.0 Calc [employer] ([facility] CHRONIC KIDNEY DISEASE STAGING PER [...] HCT IS 5% LESS SOURCE FOR DATA: [employer] 1800 OPERATION MANUAL( AUTOMATED BLOOD COUNTS AND DIFF.) APPENDIX B-3 Globulin 2.1 Calc [facility] CHRONIC KIDNEY DISEASE STAGING PER [...] HCT IS 5% LESS SOURCE FOR DATA: [employer] 1800 OPERATION MANUAL( AUTOMATED BLOOD COUNTS AND DIFF.) APPENDIX B-3 Ast (Sgot) 21 U/L 0-40 [facility] ([facility] CHRONIC KIDNEY DISEASE STAGING PER [...] HCT IS 5% LESS SOURCE FOR DATA: [employer] 1800 OPERATION MANUAL( AUTOMATED BLOOD COUNTS AND DIFF.) APPENDIX B-3 Alt (SGPT) 18 U/L 0-41 [facility] ([facility] CHRONIC KIDNEY DISEASE STAGING PER [...] HCT IS 5% LESS SOURCE FOR DATA: [employer] 1800 OPERATION MANUAL( AUTOMATED BLOOD COUNTS AND DIFF.) APPENDIX B-3 Tbili 0.36 mg/dL 0.0-1.2 [facility] ([facility] CHRONIC KIDNEY DISEASE STAGING PER [...] DIFF.) APPENDIX B-3 Alp 59.6 U/L 40-129 [facility] ([facility] CHRONIC KIDNEY DISEASE STAGING PER [...] HCT IS 5% LESS SOURCE FOR DATA: [employer] DYN 1800 OPERATION MANUAL( AUTOMATED BLOOD COUNTS AND DIFF.) APPENDIX B-3 Anion Gap 13 mmol/L [facility] CHRONIC KIDNEY DISEASE [...] HCT IS 5% LESS SOURCE FOR DATA: [employer]YN 1800 OPERATION MANUAL( AUTOMATED BLOOD COUNTS [...] HCT IS 5% LESS SOURCE FOR DATA: [employer] 1800 OPERATION MANUAL( AUTOMATED BLOOD COUNTS AND DIFF.) APPENDIX B-3 eGFR 115 # [facility] ( [facility] CHRONIC KIDNEY DISEASE STAGING [...] IS 5% LESS SOURCE FOR DATA: ANNIKA [employer] 1800 OPERATION MANUAL( AUTOMATED BLOOD COUNTS AND DIFF.) APPENDIX B-3 eGFR Non-Afr. Namibian 99 # [facility] ([facility] CHRONIC KIDNEY DISEASE STAGING [...] HCT IS 5% LESS SOURCE FOR DATA: [employer]YN 1800 OPERATION MANUAL( AUTOMATED BLOOD COUNTS AND DIFF.) APPENDIX B-3 ID Date Data Source [id number] 09/05/2019 10:40:00 AM EST JUAN ([facility] Name Value Range Interpretation Code Description Data Arlette rce(s) Supporting Document(s) WBC 7.2 10E3/uL 4.1-10.9 [facility] ([facility] CHRONIC KIDNEY DISEASE STAGING PER [...] HCT IS 5% LESS SOURCE FOR DATA: [employer] 1800 OPERATION MANUAL( AUTOMATED BLOOD COUNTS AND DIFF.) APPENDIX B-3 RBC 4.86 10E6/uL 4.20-6.30 JUAN ([facility] CHRONIC KIDNEY DISEASE STAGING [...] HCT IS 5% LESS SOURCE FOR DATA: [employer] 1800 OPERATION MANUAL( AUTOMATED BLOOD COUNTS AND DIFF.) APPENDIX B-3 HGB 12.5 g/dL 12.0-18.0 [facility] CHRONIC KIDNEY DISEASE [...] HCT IS 5% LESS SOURCE FOR DATA: [employer]YN 1800 OPERATION MANUAL( AUTOMATED BLOOD COUNTS AND DIFF.) APPENDIX B-3 HCT 39.0 % 37.0-51.0 [facility] ([facility] CHRONIC KIDNEY DISEASE [...] HCT IS 5% LESS SOURCE FOR DATA: [employer] 1800 OPERATION MANUAL( AUTOMATED BLOOD COUNTS AND DIFF.) APPENDIX B-3 MCV 80.2 fL 80.0-97.0 [facility] CHRONIC KIDNEY DISEASE [...] HCT IS 5% LESS SOURCE FOR DATA: [employer] 1800 OPERATION MANUAL( AUTOMATED BLOOD COUNTS AND DIFF.) APPENDIX B-3 MCH 25.7 pg 26.0-32.0 Below low normal [facility] ( [facility] [...] APPENDIX B-3 MCHC 32.1 g/dL 31.0-36.0 [facility] ([facility] CHRONIC KIDNEY DISEASE STAGING [...] DIFF.) APPENDIX B-3 PLT 345 10E3/uL 140-440 [facility] ([facility] CHRONIC KIDNEY DISEASE STAGING PER [...] DIFF.) APPENDIX B-3 RDW-CV 14.1 % 11.5-14.5 JUAN ([facility] CHRONIC KIDNEY DISEASE STAGING PER [...] HCT IS 5% LESS SOURCE FOR DATA: [employer] 1800 OPERATION MANUAL( AUTOMATED BLOOD COUNTS AND DIFF.) APPENDIX B-3 Neut% 70.0 % 37.0-92.0 [facility] ([facility] CHRONIC KIDNEY DISEASE STAGING [...] HCT IS 5% LESS SOURCE FOR DATA: [employer] 1800 OPERATION MANUAL( AUTOMATED BLOOD COUNTS AND DIFF.) APPENDIX B-3 MXD% 9.1 % 0.1-24.0 [facility] ([facility] CHRONIC KIDNEY DISEASE [...] HCT IS 5% LESS SOURCE FOR DATA: [employer] 1800 OPERATION MANUAL( AUTOMATED BLOOD COUNTS AND DIFF.) APPENDIX B-3 Lym% 20.9 % 10.0-58.5 [facility] CHRONIC KIDNEY DISEASE [...] HCT IS 5% LESS SOURCE FOR DATA: [employer] DYN 1800 OPERATION MANUAL( AUTOMATED BLOOD COUNTS AND DIFF.) APPENDIX B-3 Lym# 1.5 10E3/uL 0.6-4.1 [facility] ([facility] CHRONIC KIDNEY DISEASE STAGING PER [...] HCT IS 5% LESS SOURCE FOR DATA: [employer] 1800 OPERATION MANUAL( AUTOMATED BLOOD COUNTS AND DIFF.) APPENDIX B-3 Neut# 5.0 % 2.0-7.8 [facility] CHRONIC KIDNEY DISEASE [...] HCT IS 5% LESS SOURCE FOR DATA: [employer] 1800 OPERATION MANUAL( AUTOMATED BLOOD COUNTS AND DIFF.) APPENDIX B-3 MXD# 0.7 10E3/uL 0.0-1.8 [facility] ([facility] CHRONIC KIDNEY DISEASE STAGING PER [...] HCT IS 5% LESS SOURCE FOR DATA: [employer] 1800 OPERATION MANUAL( AUTOMATED BLOOD COUNTS AND DIFF.) APPENDIX B-3 MPV 8.1 fL 9.0-13.0 Below low normal [facility] ( [facility] CHRONIC [...] IS 5% LESS SOURCE FOR DATA: ANNIKA [employer] 1800 OPERATION MANUAL( AUTOMATED BLOOD COUNTS AND DIFF.) APPENDIX B-3 Procedure Vital Signs ID Date Data Source UNK Name Value Range Interpretation Code Description Data Source(s) Oxygen saturation in Arterial blood by Pulse oximetry 99 % 99 % MEDFERNA[facility]O ([facility] Body mass index (BMI) [Ratio] 29.1 kg/m2 29.1 k g/m2 [facility] ([facility] Body weight 197.00 [lb_av] 197.00 [lb_av] MEDEN T ([facility] Body height 69 [in_i] 69 [in_i] [facility] ([facility] 5'9" Respiratory rate 18 /min 18 /min [facility] ( [facility] Heart rate 88 /min 88 /min [facility] ([facility] Body temperature 98.5 [degF] 98.5 [degF] [facility] ([facility] Diastolic blood pressure 68 mm[Hg] 68 mm[Hg] [facility] ([facility] Systolic blood pressure 102 mm[Hg] 102 mm[Hg] M EDFERNANDO ([facility] Oxygen saturation in Arterial blood by Pulse oximetry 97 % 97 % MED[facility]O ([facility] Body mass index (BMI) [Ratio] 28.9 kg/m2 28.9 k g/m2 [facility] ([facility] Body weight 196.00 [lb_av] 196.00 [lb_av] MEDEN T ([facility] Body height 69 [in_i] 69 [in_i] [facility] ([facility] 5'9" Respiratory rate 18 /min 18 /min [facility] ( [facility] Heart rate 94 /min 94 /min [facility] ([facility] Body temperature 98.5 [degF] 98.5 [degF] [facility] ([facility] Diastolic blood pressure 76 mm[Hg] 76 mm[Hg] [facility] ([facility] Systolic blood pressure 106 mm[Hg] 106 mm[Hg] M EDENT ([facility] Body mass index (BMI) [Ratio] 28.4 kg/m2 28.4 k g/m2 [facility] ([facility], [facility]) Body height 69 [in_i] 69 [in_i] [facility] ([facility], [facility]) 5'9" Body weight 192.00 [lb_av] 192.00 [lb_av] MEDEN T ([facility], [facility]) Body temperature 98.8 [degF] 98.8 [degF] MED[facility] ([facility], [facility]) Oxygen saturation in Arterial blood by Pulse oximetry 98 % 98 % [facility] ([facility], [facility]) Respiratory rate 18 /min 18 /min [facility] ( [facility], [facility]) Heart rate 85 /min 85 /min [facility] ([facility], [facility]) Diastolic blood pressure 72 mm[Hg] 72 mm[Hg] [facility] ([facility], [facility]) Systolic blood pressure 106 mm[Hg] 106 mm[Hg] M EDENT ([facility], [facility]) Oxygen saturation in Arterial blood by Pulse oximetry 98 % 98 % [facility] ([facility] Body mass index (BMI) [Ratio] 29.5 kg/m2 29.5 k g/m2 [facility] ([facility] Body weight 200.00 [lb_av] 200.00 [lb_av] MEDEN T ([facility] Body height 69 [in_i] 69 [in_i] [facility] ([facility] 5'9" Respiratory rate 16 [...]
[2020-09-17 12:49] LABS: BLOOD UREA NITROGEN 12 MG/DL (7-18); CALCIUM LEVEL 8.9 MG/DL (8.5-10.1); CARBON DIOXIDE LEVEL 27 MEQ/L (21-32); CHLORIDE LEVEL 107 MEQ/L (98-107); GLOMERULAR FILTRATION RATE > 60.0 (>56); GLUCOSE, FASTING 97 MG/DL (70-100); SODIUM LEVEL 139 MEQ/L (136-145)
[2020-09-17] MEDS ORDERED: NS 1,000 ML IV SCH (14:15)
[2020-09-17] MEDS ORDERED: ceFAZolin SOD 2 GM in IV 1 EA IV ONE (14:15)
--- OUTSIDE RECORDS SUMMARY | 2020-09-17 15:20 | CCD ---
Author Author [facility] Organization [facility] Address Unknown Phone Unavailable Care Team Providers [facility] Former Name Role Phone Barraclough, Alethea PA Unavailable [...] is protected by Article 27-F of the [place] Public Health law. If you continue you may have access to information: Regarding HIV / AIDS; Provided by facilities licensed or operated by the [facility] Office of Mental Health; or Provided by the [facility] Office for People With Developmental Disabilities. If such information is present, then the following [facility] mandated warning applies: This information has [...] law may result in a fine or mcc sentence or both. A general authorization for [...] Attender: Martínez FRANCOIS 02/10/2020 07:52:24 PM EDT [facility] Outpatient Attender: Alethea MIN Chickasha Rakesh ce 01/20/2020 10:00:00 AM EDT [facility] ([facility] Outpatient Attender: Alethea MIN Chickasha Offi ce 11/25/2019 10:20:00 AM EDT [facility] ([facility] Outpatient Attender: MARIZOL Navarro 11/06/2019 03:15:00 PM EST [facility] ([facility], [facility]) Outpatient Attender: Alethea MIN Chickasha Rakesh ce 09/05/2019 08:15:00 AM EST [facility] ([facility] Medications Medication Brand Name Start Date Product Form Dose Route Admi nistrative Instructions Pharmacy Instructions Status Indications Reaction Description Data Source(s) 12 HR Bupropion Hydrochloride 200 MG Extended Release Oral Tablet [Wellbutrin] Wellbutrin SR 11/25/2019 12:00:00 AM EDT ORAL active [facility] ([facility] montelukast 10 MG Oral Tablet Montelukast Sodium 11/25/2019 12:00:00 AM EDT active [facility] ([facility] Azelastine HCL (Nasal) Azelastine HCL (Nasal) 11/25/2019 12:00:00 AM E DT active [facility] ([facility] tramadol hydrochloride 50 MG Oral Tablet Tramadol HCL 11/06/2019 12:00:00 AM EST ORAL active [facility] ([facility], [facility]) 50 mg 11/06/2019 12:00:00 AM EST tablet 6 TAKE ONE TABLET BY MOUTH EVERY 12 HOURS NEEDED FOR PAIN MAXIMUM DAILY DOSE = 2 TAKE ONE TABLET BY MOUTH EVERY 12 HOURS NEEDED FOR PAIN MAXIMUM DAILY DOSE = 2 SOLD: 11/06/2019 [facility] Hydroxyzine Hydrochloride 25 MG Oral Tablet Hydroxyzine HCL 09/05/2019 12:00:00 AM EST ORAL active [facility] ([facility] 12 HR Bupropion Hydrochloride 150 MG Extended Release Oral Tablet [Wellbutrin] Wellbutrin SR 09/05/2019 12:00:00 AM EST ORAL completed [facility] ([facility] Lactobacillus acidophilus [id number] UNT Oral Capsule Probiot ic Acidophilus 09/05/2019 12:00:00 AM EST ORAL active [facility] ([facility] Turmeric 09/05/2019 12:00:00 AM EST active [facility] ([facility] Insurance Providers Payer name Policy type / Coverage type Policy ID Covered alliance party ID Covered alliance party's relationship to carter Policy Carter Plan Information [employer] [id number] SP [id number] [facility] [id number] SP [id number] [facility] Commercial [id number] Self [id number] [facility] Commercial [id number] Self [id number] [facility] [id number] SP [id number] [facility] COMMUNITY PLAN MCDO [id number] SP [id number] [employer]) Workers Compensation [id number] Self [id number] [employer] O [id number] S [id number] [employer] Workers Compensation [id number] Self [id number] [place] SP [facility] Health Maintenance Organization (HMO) [id number] Self [id number] [facility] O [id number] S [id number] [employer] O [id number] S [id number] [employer] [id number] SP [id number] [employer] [id number] SP [id number] [facility](M[facility]) O [id number] S [id number] [facility] O [id number] S [id number] MEDICAID [facility] [id number] SP AY [id number] [facility] COMMUNITY PLAN [id number] SP [id number] [employer] Commercial [id number] Self [id number] YAMIL [id number] SP [id number] Other Self Problems, Conditions, and Diagnoses Code Display Name Description Problem Type Effective Dates Data Source(s) 612270094 Seasonal allergic rhinitis Seasonal allergic rhinitis Problem 11/25/2019 12:00:00 AM EDT [facility] (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 Problem 09/05/2019 12:00:00 AM EST [facility] ([facility] Surgeries/Procedures Procedure Description Date Indications Data Source(s) Electrocardiogram Complete 09/05/2019 12:00:00 AM EST [facility] ([facility] Results ID Date Data Source [id number] 09/05/2019 10:40:00 AM EST [facility] ([facility] Name Value Range Interpretation Code Description Data Arlette rce(s) Supporting Document(s) Specific [place] Laboratory test result 1.00-1.03 [facility] ([facility] Color Urine Laboratory test result M EDENT ([facility] Appearance of Urine Laboratory test result [facility] ([facility] Bilirubin.total [Presence] in Urine by Test strip Laboratory test res ult [facility] ([facility] Glucose Urine Laboratory test result [facility] ([facility] PH Urine 5.5 5.0-8.0 [facility] Protein Urine Laboratory test result [facility] ([facility] Ketones Laboratory test result [facility] ([facility] Blood Urine Laboratory test result M EDENT ([facility] Nitrite Laboratory test result [facility] ([facility] Urobilinogen 0.2 EU/dl 0.2-1.0 [facility] Leukocytes Laboratory test result ME DENT ([facility] ID Date Data Source [id number] 09/05/2019 10:40:00 AM EST [facility] ([facility] Name Value Range Interpretation Code Description Data Arlette rce(s) Supporting Document(s) Glu 81 mg/dL 70-110 [facility] CHRONIC KIDNEY DISEASE STAGING [...] HCT IS 5% LESS SOURCE FOR DATA: [employer] 1800 OPERATION MANUAL( AUTOMATED BLOOD COUNTS AND DIFF.) APPENDIX B-3 BUN/Creatinine Ratio 13.8 Calc [facility] ([facility] CHRONIC KIDNEY DISEASE STAGING [...] DIFF.) APPENDIX B-3 Creat 0.9 mg/dL 0.7-1.2 [facility] ([facility] CHRONIC KIDNEY DISEASE STAGING [...] DIFF.) APPENDIX B-3 BUN 12 mg/dL 04-25 [facility] ([facility] CHRONIC KIDNEY DISEASE STAGING [...] HCT IS 5% LESS SOURCE FOR DATA: [employer] 1800 OPERATION MANUAL( AUTOMATED BLOOD COUNTS AND DIFF.) APPENDIX B-3 Na 138 mmol/L 136-145 [facility] ([facility] CHRONIC KIDNEY DISEASE STAGING PER [...] HCT IS 5% LESS SOURCE FOR DATA: [employer] 1800 OPERATION MANUAL( AUTOMATED BLOOD COUNTS AND DIFF.) APPENDIX B-3 K 4.3 mmol/L 3.5-5.1 [facility] CHRONIC KIDNEY DISEASE STAGING PER [...] HCT IS 5% LESS SOURCE FOR DATA: [employer]YN 1800 OPERATION MANUAL( AUTOMATED BLOOD COUNTS AND DIFF.) APPENDIX B-3 CL 102.6 mmol/L 98.0-107.0 [facility] ([facility] CHRONIC KIDNEY DISEASE STAGING PER [...] HCT IS 5% LESS SOURCE FOR DATA: [employer] 1800 OPERATION MANUAL( AUTOMATED BLOOD COUNTS AND DIFF.) APPENDIX B-3 CA 9.3 mg/dL 8.6-10.2 [facility] CHRONIC KIDNEY DISEASE STAGING [...] Co2 27.3 mmol/L 22.0-29.0 [facility] ([facility] CHRONIC KIDNEY DISEASE STAGING [...] DIFF.) APPENDIX B-3 Alb 4.3 g/dL 3.5-5.2 [facility] CHRONIC KIDNEY DISEASE STAGING [...] DIFF.) APPENDIX B-3 A/G Ratio 2.0 Calc [facility] ([facility] CHRONIC KIDNEY DISEASE STAGING [...] HCT IS 5% LESS SOURCE FOR DATA: [employer] 1800 OPERATION MANUAL( AUTOMATED BLOOD COUNTS AND DIFF.) APPENDIX B-3 Globulin 2.1 Calc [facility] CHRONIC KIDNEY DISEASE STAGING [...] HCT IS 5% LESS SOURCE FOR DATA: [employer] 1800 OPERATION MANUAL( AUTOMATED BLOOD COUNTS AND DIFF.) APPENDIX B-3 Ast (Sgot) 21 U/L 0-40 [facility] ([facility] CHRONIC KIDNEY DISEASE STAGING PER [...] HCT IS 5% LESS SOURCE FOR DATA: [employer] 1800 OPERATION MANUAL( AUTOMATED BLOOD COUNTS AND DIFF.) APPENDIX B-3 Alt (SGPT) 18 U/L 0-41 [facility] ([facility] CHRONIC KIDNEY DISEASE STAGING PER [...] HCT IS 5% LESS SOURCE FOR DATA: [employer] 1800 OPERATION MANUAL( AUTOMATED BLOOD COUNTS AND DIFF.) APPENDIX B-3 Tbili 0.36 mg/dL 0.0-1.2 [facility] ([facility] CHRONIC KIDNEY DISEASE STAGING PER [...] DIFF.) APPENDIX B-3 Alp 59.6 U/L 40-129 [facility] ([facility] CHRONIC KIDNEY DISEASE STAGING [...] HCT IS 5% LESS SOURCE FOR DATA: [employer] DYN 1800 OPERATION MANUAL( AUTOMATED BLOOD COUNTS AND DIFF.) APPENDIX B-3 Anion Gap 13 mmol/L [facility] CHRONIC KIDNEY DISEASE STAGING [...] HCT IS 5% LESS SOURCE FOR DATA: [employer] DYN 1800 OPERATION MANUAL( AUTOMATED BLOOD COUNTS [...] HCT IS 5% LESS SOURCE FOR DATA: [employer] 1800 OPERATION MANUAL( AUTOMATED BLOOD COUNTS AND DIFF.) APPENDIX B-3 eGFR 115 # [facility] ( [facility] CHRONIC KIDNEY DISEASE STAGING [...] IS 5% LESS SOURCE FOR DATA: ANNIKA [employer] 1800 OPERATION MANUAL( AUTOMATED BLOOD COUNTS AND DIFF.) APPENDIX B-3 eGFR Non-Afr. Monegasque 99 # [facility] ([facility] CHRONIC KIDNEY DISEASE STAGING PER [...] HCT IS 5% LESS SOURCE FOR DATA: [employer] DYN 1800 OPERATION MANUAL( AUTOMATED BLOOD COUNTS AND DIFF.) APPENDIX B-3 ID Date Data Source [id number] 09/05/2019 10:40:00 AM EST JUAN ([facility] Name Value Range Interpretation Code Description Data Arlette rce(s) Supporting Document(s) WBC 7.2 10E3/uL 4.1-10.9 [facility] ([facility] CHRONIC KIDNEY DISEASE STAGING [...] HCT IS 5% LESS SOURCE FOR DATA: [employer] 1800 OPERATION MANUAL( AUTOMATED BLOOD COUNTS AND DIFF.) APPENDIX B-3 RBC 4.86 10E6/uL 4.20-6.30 [facility] ([facility] CHRONIC KIDNEY DISEASE STAGING [...] HCT IS 5% LESS SOURCE FOR DATA: [employer] 1800 OPERATION MANUAL( AUTOMATED BLOOD COUNTS AND DIFF.) APPENDIX B-3 HGB 12.5 g/dL 12.0-18.0 [facility] CHRONIC KIDNEY DISEASE [...] HCT IS 5% LESS SOURCE FOR DATA: [employer] DYN 1800 OPERATION MANUAL( AUTOMATED BLOOD COUNTS AND DIFF.) APPENDIX B-3 HCT 39.0 % 37.0-51.0 [facility] CHRONIC KIDNEY DISEASE STAGING [...] HCT IS 5% LESS SOURCE FOR DATA: [employer] 1800 OPERATION MANUAL( AUTOMATED BLOOD COUNTS AND DIFF.) APPENDIX B-3 MCV 80.2 fL 80.0-97.0 [facility] CHRONIC KIDNEY DISEASE STAGING [...] HCT IS 5% LESS SOURCE FOR DATA: [employer] DYN 1800 OPERATION MANUAL( AUTOMATED BLOOD COUNTS [...] APPENDIX B-3 MCHC 32.1 g/dL 31.0-36.0 [facility] ([facility] CHRONIC KIDNEY DISEASE [...] DIFF.) APPENDIX B-3 PLT 345 10E3/uL 140-440 [facility] ([facility] CHRONIC KIDNEY DISEASE STAGING [...] APPENDIX B-3 RDW-CV 14.1 % 11.5-14.5 [facility] ([facility] CHRONIC KIDNEY DISEASE STAGING [...] HCT IS 5% LESS SOURCE FOR DATA: [employer] 1800 OPERATION MANUAL( AUTOMATED BLOOD COUNTS AND DIFF.) APPENDIX B-3 Neut% 70.0 % 37.0-92.0 [facility] CHRONIC KIDNEY DISEASE [...] HCT IS 5% LESS SOURCE FOR DATA: [employer] 1800 OPERATION MANUAL( AUTOMATED BLOOD COUNTS AND DIFF.) APPENDIX B-3 MXD% 9.1 % 0.1-24.0 [facility] CHRONIC KIDNEY DISEASE STAGING [...] HCT IS 5% LESS SOURCE FOR DATA: [employer] 1800 OPERATION MANUAL( AUTOMATED BLOOD COUNTS AND DIFF.) APPENDIX B-3 Lym% 20.9 % 10.0-58.5 [facility] CHRONIC KIDNEY DISEASE STAGING [...] HCT IS 5% LESS SOURCE FOR DATA: [employer] DYN 1800 OPERATION MANUAL( AUTOMATED BLOOD COUNTS AND DIFF.) APPENDIX B-3 Lym# 1.5 10E3/uL 0.6-4.1 [facility] ([facility] CHRONIC KIDNEY DISEASE STAGING [...] HCT IS 5% LESS SOURCE FOR DATA: [employer] 1800 OPERATION MANUAL( AUTOMATED BLOOD COUNTS AND DIFF.) APPENDIX B-3 Neut# 5.0 % 2.0-7.8 [facility] CHRONIC KIDNEY DISEASE STAGING [...] HCT IS 5% LESS SOURCE FOR DATA: [employer] 1800 OPERATION MANUAL( AUTOMATED BLOOD COUNTS AND DIFF.) APPENDIX B-3 MXD# 0.7 10E3/uL 0.0-1.8 [facility] ([facility] CHRONIC KIDNEY DISEASE STAGING [...] HCT IS 5% LESS SOURCE FOR DATA: [employer] 1800 OPERATION MANUAL( AUTOMATED BLOOD COUNTS AND DIFF.) APPENDIX B-3 MPV 8.1 fL 9.0-13.0 Below low normal [facility] ( [facility] CHRONIC [...] IS 5% LESS SOURCE FOR DATA: ANNI[employer] 1800 OPERATION MANUAL( AUTOMATED BLOOD COUNTS AND DIFF.) APPENDIX B-3 Procedure Vital Signs ID Date Data Source UNK Name Value Range Interpretation Code Description Data Source(s) Oxygen saturation in Arterial blood by Pulse oximetry 99 % 99 % [facility] ([facility] Body mass index (BMI) [Ratio] 29.1 kg/m2 29.1 k g/m2 [facility] ([facility] Body weight 197.00 [lb_av] 197.00 [lb_av] MEDEN T ([facility] Body height 69 [in_i] 69 [in_i] [facility] ([facility] 5'9" Respiratory rate 18 /min 18 /min [facility] ( [facility] Heart rate 88 /min 88 /min [facility] ([facility] Body temperature 98.5 [degF] 98.5 [degF] [facility] ([facility] Diastolic blood pressure 68 mm[Hg] 68 mm[Hg] [facility] ([facility] Systolic blood pressure 102 mm[Hg] 102 mm[Hg] M [facility] ([facility] Oxygen saturation in Arterial blood by Pulse oximetry 97 % 97 % [facility] ([facility] Body mass index (BMI) [Ratio] 28.9 kg/m2 28.9 k g/m2 [facility] ([facility] Body weight 196.00 [lb_av] 196.00 [lb_av] MED[facility] T ([facility] Body height 69 [in_i] 69 [in_i] [facility] ([facility] 5'9" Respiratory rate 18 /min 18 /min [facility] ( [facility] Heart rate 94 /min 94 /min [facility] ([facility] Body temperature 98.5 [degF] 98.5 [degF] [facility] ([facility] Diastolic blood pressure 76 mm[Hg] 76 mm[Hg] [facility] ([facility] Systolic blood pressure 106 mm[Hg] 106 mm[Hg] M EDENT ([facility] Body mass index (BMI) [Ratio] 28.4 kg/m2 28.4 k g/m2 [facility] ([facility], [facility]) Body height 69 [in_i] 69 [in_i] [facility] ([facility], [facility]) 5'9" Body weight 192.00 [lb_av] 192.00 [lb_av] MEDEN T ([facility], [facility]) Body temperature 98.8 [degF] 98.8 [degF] [facility] ([facility], [facility]) Oxygen saturation in Arterial blood by Pulse oximetry 98 % 98 % [facility] ([facility], [facility]) Respiratory rate 18 /min 18 /min [facility] ( [facility], [facility]) Heart rate 85 /min 85 /min [facility] ([facility], [facility]) Diastolic blood pressure 72 mm[Hg] 72 mm[Hg] [facility] ([facility], [facility]) Systolic blood pressure 106 mm[Hg] 106 mm[Hg] M EDENT ([facility], [facility]) Oxygen saturation in Arterial blood by Pulse oximetry 98 % 98 % [facility] ([facility] Body mass index (BMI) [Ratio] 29.5 kg/m2 29.5 k g/m2 [facility] ([facility] Body weight 200.00 [lb_av] 200.00 [lb_av] MEDEN T ([facility] Body height 69 [in_i] 69 [in_i] [facility] ([facility] 5'9" Respiratory rate [...]
[2020-09-17] MEDS: ceFAZolin 1GM VIAL (J0690 PER 500MG) As Ordered ONE ×2 (16:50→18:50)
[2020-09-17] MEDS ORDERED: fentaNYL 100 MCG/2 ML INJECTION (J3010) As Ordered ONE (17:45)
[2020-09-17] MEDS ORDERED: MIDAZOLAM INJ 2MG/2ML VIAL (J2250 PER 1MG) As Ordered ONE (17:45)
[2020-09-17] MEDS ORDERED: dexameTHASONE 4 MG/ML 1ML VIAL (J1100 PER 1MG) As Ordered ONE (17:46)
[2020-09-17] MEDS ORDERED: ONDANSETRON 4MG/2ML VIAL As Ordered ONE (17:46)
[2020-09-17] MEDS ORDERED: propofoL 200 MG/20 ML VIAL As Ordered ONE (17:46)
[2020-09-17] MEDS ORDERED: ROCURONIUM BROMIDE 50 MG/5 ML VIAL As Ordered ONE (17:46)
[2020-09-17] MEDS ORDERED: SUGAMMADEX SODIUM 500 MG/5 ML VIAL (BRIDION) As Ordered ONE (17:46)
[2020-09-17] MEDS ORDERED: LIDOCAINE 2% 100MG/5ML SDV (FOR ANES.) As Ordered ONE (17:46)
[2020-09-17] MEDS ORDERED: ePHEDrine SULFATE 25 MG/5 ML(5MG/ML) SYRINGE As Ordered ONE (17:51)
[2020-09-17] MEDS ORDERED: PHENYLephrine 500MCG 5ML (100MCG/ML) SYRINGE As Ordered ONE (17:51)
[2020-09-17] MEDS ORDERED: BUPIVACAINE LIPOSOME/PF 1.3% 20ML VIAL (13.3MG/ML)(EXPAREL)(C9290 PER1MG) As Ordered ONE (18:27)
[2020-09-17] MEDS ORDERED: BUPIVACAINE/EPIN 0.25% 30 ML VIAL As Ordered ONE (18:27)
[2020-09-17] MEDS ORDERED: BUPIVACAINE HCL 0.25% 10ML VIAL As Ordered ONE (18:27)
[2020-09-17] MEDS ORDERED: ACETAMINOPHEN 1000MG 100ML IV BTL (OFIRMEV) (J0131 PER 10MG) As Ordered ONE (18:59)
[2020-09-17] MEDS ORDERED: ONDANSETRON 4MG/2ML VIAL IV PRN ×2 (19:30→20:15)
[2020-09-17] MEDS ORDERED: NORCO, ANEXSIA 5/325MG TABLET (HYDROcodone/ACETAMINOPHEN) PO PRN ×2 (19:30)
[2020-09-17] MEDS ORDERED: MORPHINE 2 MG/ML 1ML VIAL (J2270) IV PRN (19:30)
[2020-09-17] MEDS ORDERED: MORPHINE 4 MG/ML 1ML VIAL/SYRINGE (J2270) IV PRN (19:30)
[2020-09-17] MEDS ORDERED: LR 1,000 ML IV SCH ×2 (19:30→20:15)
[2020-09-17] MEDS ORDERED: fentaNYL 100 MCG/2 ML INJECTION (J3010) IV PRN (20:15)
[2020-09-17] MEDS ORDERED: METOCLOPRAMIDE INJ 10MG/2ML VIAL (J2765 PER 1) IV PRN (20:15)
[2020-09-17] MEDS ORDERED: oxyCODONE 5MG TAB PO PRN (20:15)
[2020-09-17 20:40] VITALS: BP 125/86
[2020-09-17 21:23] VITALS: BP 124/86
[2020-09-17] MEDS ORDERED: NICOTINE 21MG/24HR 1 EA TRANSDERMAL TD ONE (21:30)
[2020-09-17 22:28] VITALS: BP 121/76
[2020-09-17 23:36] VITALS: BP 121/75
[2020-09-17] MEDS: KETOROLAC 30 MG/ML 1ML VIAL IV SCH (23:45)
[2020-09-17] MEDS: ceFAZolin SOD 1 GM in D5W MINI-BAG PLUS 50 ML IV SCH (23:45)
[2020-09-18 00:49] VITALS: BP 121/76
[2020-09-18 05:54] VITALS: BP 111/72
[2020-09-18] MEDS: KETOROLAC 30 MG/ML 1ML VIAL IV SCH (06:06)
[2020-09-18] MEDS: ceFAZolin SOD 1 GM in D5W MINI-BAG PLUS 50 ML IV SCH (06:06)
[2020-09-18] MEDS ORDERED: PANTOPRAZOLE 40MG TAB (PROTONIX) PO SCH (09:00)
[2020-09-18] MEDS ORDERED: HYDR-3715 PO (09:40)
[2020-09-18] MEDS ORDERED: IBUP-1022 PO (09:40)
[2020-09-18 10:00] VITALS: BP 121/78
--- NOTE | 2020-09-18 10:01 | RO ---
OPERATIVE NOTE DATE OF OPERATION: 09/17/2020 PREOPERATIVE DIAGNOSIS: Incarcerated umbilical hernia. POSTOPERATIVE DIAGNOSIS: Incarcerated umbilical hernia. PROCEDURE: Repair of incarcerated umbilical hernia. SURGEON: Shahab Solares MD OVEN DRIER TENDER: ANESTHESIA: General endotracheal anesthesia. EBL: Minimal. FLUIDS: Crystalloid. DESCRIPTION OF PROCEDURE: The patient was brought into the operating room and given general anesthesia. After adequate anesthesia and preoperative antibiotics were given the patient was prepped and draped in usual sterile fashion. A supraumbilical incision was made with skin knife. Blunt dissection was carried down to fascia and circumferentially I was able to isolate out the umbilical hernia which was incarcerated within the hernia sac itself. The hernia sac was opened at the level of the fascia and once I was able to open this up I was able to get some omentum that was in this, this was transected at its base and then circumferentially I was able to transect the hernia sac off the surrounding tissue. There was some preperitoneal fat within this as well. In any case, once this was transected the fascial defect was not very large, probably about a centimeter and slightly larger than a centimeter, but this was closed with two [id number] #0 Ethibond sutures. The subcutaneous tissue was copiously irrigated with saline and 3-0 Vicryl was used to approximate the dermis, 4-0 Vicryl was used to approximate the skin. Steri-Strips and dry, sterile dressing were applied. The patient was awakened, extubated and brought to the recovery room awake, alert and hemodynamically stable. Sponge and needle counts correct x2.
== END 2020-09-18 11:30 | disposition home or self-care (01) ==
LOC: M ED 10:58 → M SDC 10:59 → M MS5PR 20:40 → M SDC 09-18 11:30
PROVIDERS: ATTEND Surgery
DX: K42.0 Umbilical hernia with obstruction, without gangrene (principal); G47.30 Sleep apnea, unspecified; J45.909 Unspecified asthma, uncomplicated; F17.218 Nicotine dependence, cigarettes, with other nicotine-induced disorders; F41.9 Anxiety disorder, unspecified; F32.9 Major depressive disorder, single episode, unspecified; Z79.899 Other long term (current) drug therapy
CPT/HCPCS: 36415; 49587; 76705; 80048; 83605; 85025; 87486; 87581; 87633; 87798; 88302; 96361; 96365; 96366; 96375; 96376; 99284; C9290; J0131; J0690; J1100; J1885; J2250; J2370; J2405; J3010